=== PATIENT | male | born 1940 | race Caucasian/White ===

== ENCOUNTER 2019-10-29 10:33 | Outpatient (CLI) | payer MEDICARE, SELFPAY ==
[2019-10-29 11:33] LABS: Alanine Aminotransferase 22 U/L (16-63); Albumin Level 3.5 g/dL (3.4-5.0); Alkaline Phosphatase 72 U/L (46-116); Anion Gap 10.4 mmol/L (7-16); Aspartate Amino Transferase 18 U/L (15-37); Bilirubin,Total 0.9 mg/dL (0.00-1.00); Blood Urea Nitrogen 19 mg/dL (7-18); Calcium 8.8 mg/dL (8.5-10.1); Carbon Dioxide 31 mmol/L (21-32); Chloride 104 mmol/L (98-108); Estimated Glomerular Filt Rate 53; Glucose 93 mg/dL (70-99); Osmolality Calculated 294 mOsm/kg (285-295); Potassium 4.4 mmol/L (3.5-5.1); Prostate Specific Antigen 1.1 ng/mL (< OR = 4.0); Sodium 141 mmol/L (136-145); Total Protein 6.9 g/dL (6.4-8.2)
== END 2019-10-29 10:34 | disposition home or self-care (01) ==
LOC: CHSLAB 10:36
PROVIDERS: PCP Internal Medicine; Visit Provider Urology
DX: R97.20 Elevated prostate specific antigen [PSA] (principal)
CPT/HCPCS: 36415; 80053; 84153

== ENCOUNTER 2020-09-28 11:18 | Outpatient (CLI) | payer MEDICARE, SELFPAY ==
--- NOTE | ~2020-09-28 | US_ITS ---
EXAMINATION: US carotid duplex BI DATE: 09/28/2020 16:09 INDICATION: Syncope. TECHNIQUE: Grayscale, color Doppler, and pulsed Doppler images of the cervical carotid arteries were obtained. The degree of vessel stenosis is placed in one of the following categories: normal, <50%, 5 0-69%, >=70% but less than near-occlusion, near-occlusion, or total occlusion. Note that percent sten osis relative to normal distal artery lumen diameter is indirectly measured from velocity measurement s as described by Donny, et al. Radiology 2003; 229:340-346. COMPARISON: None. FINDINGS: RIGHT: The right common carotid artery (CCA) peak systolic velocity (PSV) is 94 cm/s. The right internal car otid artery (ICA) PSV is 102 cm/s. The right ICA end-diastolic velocity (EDV) is 31 cm/s. The right I CA/CCA PSV ratio is 1.1. Grayscale and color Doppler images yield an estimate of <50% diameter reduct ion from plaque in the ICA. There is antegrade flow in the right vertebral artery. LEFT: The left CCA PSV is 66 cm/s. The left ICA PSV is 88 cm/s. The left ICA EDV is 27 cm/s. The left ICA/C CA PSV ratio is 1.3. Grayscale and color Doppler images yield an estimate of <50% diameter reduction from plaque in the ICA. There is antegrade flow in the left vertebral artery. IMPRESSION: 1. <50% stenosis in the right internal carotid artery. 2. <50% stenosis in the left internal carotid artery. Reviewed, dictated and finalized at location A.
--- NOTE | ~2020-09-28 | XR_ITS ---
EXAMINATION: XR chest 2V 09/28/2020 12:06 INDICATION: Syncope and dizziness PROCEDURE: 2 view chest COMPARISON: Comparison to multiple prior studies sequentially, with oldest reviewed study dated 01/03. FINDINGS: The lungs are clear. The cardiomediastinal silhouette is within normal limits. There are no pleural effusions. There is no pneumothorax suspected. Prominent bilateral nipple shadows. IMPRESSION: 1: NO ACUTE CARDIOPULMONARY DISEASE. Reviewed, dictated and finalized at location B.
[2020-09-28 11:33] LABS: Basophils Absolute Auto 0.03 K/mm3 (0.00-0.10); Basophils Percent Auto 0.3 % (0.0-1.0); Eosinophils Absolute Auto 0.04 K/mm3 (0.02-0.50); Eosinophils Percent Auto 0.4 % (1.0-6.0); Hematocrit 44.1 % (37.0-46.0); Hemoglobin 15.6 g/dL (12.4-15.3); Immature Granulocyte Absolute 0.07 K/mm3 (0.00-0.00); Immature Granulocyte Percent A 0.7 % (0.0-0.0); Lymphocytes Absolute Auto 1.48 K/mm3 (1.10-4.50); Lymphocytes Percent Auto 15.5 % (18.0-42.0); Mean Corpuscular HGB Conc 35.4 g/dL (32.0-36.0); Mean Corpuscular Hemoglobin 31.5 pg (27.0-31.0); Mean Corpuscular Volume 88.9 fL (78.0-102.0); Mean Platelet Volume 8.7 fl (8.7-11.0); Monocytes Absolute Auto 0.76 K/mm3 (0.10-0.90); Neutrophils Absolute Auto 7.2 K/mm3 (1.7-7.2); Neutrophils Percent Auto 75.1 % (50.0-70.0); Platelet Count Result 251 K/mm3 (150-420); Red Blood Count 4.96 M/mm3 (4.70-6.10); Red Cell Distribution Width 12.6 % (11.6-14.4); White Blood Count 9.6 K/mm3 (4.8-10.8)
[2020-09-28 11:36] LABS: Add Urine Microscopic? YES; Appearance Urine Clear (Clear); Bilirubin Urine Negative (Negative); Blood Urine 2+ (Negative); Color Urine Yellow (Yellow); Glucose Urine UA Negative (Negative); Ketones Urine Negative (Negative); Leukocyte Esterase Ur Negative LEU/UL (Negative); Nitrate Urine Negative (Negative); Protein Urine Negative (Negative); Urobilinogen Urine 0.2 mg/dL (0.2-1.0)
[2020-09-28 11:38] LABS: RBC Urine 0-2 /hpf (0-2); Squamous Epithelial Cell Urine Rare /hpf (Few); WBC Urine None seen /hpf (0-3)
[2020-09-28 11:39] LABS: Bacteria Urine Trace /hpf
--- NOTE | 2020-09-28 11:45 | ECG_ITS ---
Measurements Intervals Imperial Rate: 61 P: 66 KS: 149 QRS: 39 QRSD: 89 T: 12 QT: 366 QTc: 370 Interpretive Statements SINUS RHYTHM NORMAL ECG Electronically Signed On 09-28-2020 13:07:19 CDT by Bert Varela D.O.
[2020-09-28 12:25] LABS: Alanine Aminotransferase 27 U/L (16-63); Albumin Level 3.8 g/dL (3.4-5.0); Alkaline Phosphatase 78 U/L (46-116); Anion Gap 12 mmol/L (8-16); Aspartate Amino Transferase 19 U/L (15-37); Bilirubin,Total 0.8 mg/dL (0.00-1.00); Blood Urea Nitrogen 18 mg/dL (7-18); Calcium 9.3 mg/dL (8.5-10.1); Carbon Dioxide 28 mmol/L (21-32); Chloride 103 mmol/L (98-108); Cholesterol 197 mg/dL (0-200); Estimated Glomerular Filt Rate 60; Glucose 96 mg/dL (70-99); HDL Direct 64 mg/dL (40-60); LDL Cholesterol Calculated 110 mg/dL (<130); Osmolality Calculated 297 mOsm/kg (285-295); Potassium 4.4 mmol/L (3.5-5.1); Sodium 143 mmol/L (136-145); Thyroid Stimulating Hormone 0.33 uIU/mL (0.36-3.74); Total Protein 7.1 g/dL (6.4-8.2); Triglycerides 113 mg/dL (0-150)
[2020-09-28 13:07] LABS: CRP < 0.2 mg/dL (0.0-0.9)
--- NOTE | 2020-09-28 14:40 | ECHO_ITS ---
Patient Info Name: Jesús Cruz Age: 80 years : 1940 Gender: Male Ht: 68 in Wt: 155 lbs BSA: 1.84 m2 HR: 72 bpm BP: 154 / 77 mmHg Heart Rhythm: Sinus Rhythm Technical Quality: Fair Exam Date: 09/28/2020 2:32 PM Exam Location: [facility] Patient Status: Outpatient Admit Date: 09/28/2020 Staff Ordering Physician: Jorge A Carlton MD Methods Examiner: Josie Garrison RDCS Attending Provider: Jorge A Carlton MD Exam Type: CA echo doppler color flow Study Info Indications R55 - Syncope and collapse Strain analysis performed. Complete two-dimensional, color flow and Doppler transthoracic echocardiogram is performed. History/Risk Factors Tobacco Use: Never Summary 1. Complete two-dimensional, color flow and Doppler transthoracic echocardiogram is performed. 2. Left ventricular chamber dimension is normal. 3. Left ventricular systolic function is normal, estimated at 60-65%. 4. The left ventricular diastolic function is grade I diastolic dysfunction. 5. E/e' 8 is minimally elevated. 6. Global longitudinal strain is normal at -20.7%. 7. Interatrial septal aneurysm with no evidence of shunting by color doppler. 8. There is mild aortic valve sclerosis. 9. There is mild aortic valve regurgitation. 10. There is mild mitral valve regurgitation. 11. There is mild tricuspid valve regurgitation. 12. No pulmonary hypertension, estimated pulmonary arterial systolic pressure is 35 mmHg. 13. There is trace pulmonic regurgitation. Left Ventricle E/e' 8 is minimally elevated. Global longitudinal strain is normal at -20.7%. Left ventricular chamber dimension is normal. Left ventricular systolic function is normal, estimated at 60-65%. The left ventricular diastolic function is grade I diastolic dysfunction. Right Ventricle Right ventricular systolic function is normal and with normal TAPSE 1.8 cm.. Right ventricular chamber dimension is normal. Left Atria Left atrial chamber dimension is normal. Right Atria Right atrial chamber dimension is normal. 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 Aortic Valve The aortic valve is trileaflet. There is mild aortic valve sclerosis. There is no aortic valve stenosis. There is mild aortic valve regurgitation. Pulmonic Valve There is trace pulmonic regurgitation. Mitral Valve There is no mitral valve stenosis. There is mild mitral valve regurgitation. Tricuspid Valve There is mild tricuspid valve regurgitation. No pulmonary hypertension, estimated pulmonary arterial systolic pressure is 35 mmHg. Pericardium/Pleural There is no pericardial effusion. Inferior Vena Cava Inferior vena cava is not well visualized. Aorta The aortic root size at the sinus of Valsalva is normal. Left Ventricular Outflow Tract Name Value Normal LVOT 2D LVOT Diameter 1.9 cm LVOT Doppler LVOT Peak Velocity 130 cm/s LVOT Peak Gradient 7 mmHg LVOT Mean Gradient 3 mmHg LVOT VTI 23 cm
== END 2020-09-28 11:19 | disposition home or self-care (01) ==
PROVIDERS: PCP Internal Medicine; Visit Provider Internal Medicine
DX: R55 Syncope and collapse (principal); E03.9 Hypothyroidism, unspecified; E78.5 Hyperlipidemia, unspecified
CPT/HCPCS: 36415; 71046; 80053; 80061; 81001; 84443; 85025; 86140; 93005; 93306; 93880

== ENCOUNTER 2020-09-30 12:45 | Outpatient (CLI) | payer MEDICARE, SELFPAY | END 2020-09-30 12:46 | disposition home or self-care (01) | LOC: CHSLAB 12:49 | PROVIDERS: PCP Internal Medicine; Visit Provider Urology | DX: N42.9 Disorder of prostate, unspecified (principal); N40.1 Benign prostatic hyperplasia with lower urinary tract symptoms | CPT/HCPCS: 36415; 84153 ==

== ENCOUNTER 2020-10-05 06:55 | Outpatient (CLI) | payer MEDICARE, SELFPAY ==
--- NOTE | ~2020-10-05 | MR_ITS ---
EXAMINATION: MR brain/brain stem wo con DATE: 10/05/2020 12:10 INDICATION: Syncope. TECHNIQUE: Magnetic resonance imaging (MRI) of the brain and brainstem was performed without intraven ous contrast. Sequences included sagittal and axial T1-weighted FSE, axial diffusion-weighted FS EPI, axial T2*-weighted GRE, axial T2-weighted FLAIR Propeller, and axial T2-weighted Propeller. Apparent diffusion coefficient (ADC) maps were created. COMPARISON: None. FINDINGS: There is diffuse brain volume loss. There are scattered areas of nonspecific increased T2-w eighted signal intensity in the cerebral white matter, which is within normal limits for the patient' s age. 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 There is no intracranial hemorrhage, acute infarct ion, or abnormal intracranial mass lesion. The ventricles are normal in size. There are likely change s of ocular lens replacement surgeries. There is mild mucosal thickening in the paranasal sinuses. Th e mastoid air cells are normal. IMPRESSION: 1. Old infarct in left cerebellum. Reviewed, dictated and finalized at location A.
--- NOTE | 2020-10-31 17:09 | WPDHOLTEREM ---
Holter/Event Monitor Holter/Event Monitor Date of procedure: 10/05/20 Holter/Event Procedure: Event Monitor Indications: Syncope Conclusion: 1. 24 days event monitor between 10/05/20-10/31/20. There are 33 available transmissions for analysis. 2. Predominant rhythm is sinus rhythm. HR range 37-143 bpm; average HR 61 bpm. HR at 37 bpm occurred at 02:01. 3. There are occasional premature supraventricular complexes with total burden of 1%. 1 episode of atrial tachycardia at 143 bpm lasting 14 beats on 10/15/20 at 22:20. 4. There are frequent premature ventricular complexes with total burden of 9%. No ventricular tachycardia. 5. No significant pauses greater than 2 seconds. 6. No symptoms available for correlation.
== END 2020-10-05 06:56 | disposition home or self-care (01) ==
LOC: CHSIMG 06:58
PROVIDERS: PCP Internal Medicine; Visit Provider Internal Medicine
DX: R55 Syncope and collapse (principal)
CPT/HCPCS: 70551

== ENCOUNTER 2020-12-09 11:11 | Outpatient (CLI) | payer MEDICARE, SELFPAY ==
[2020-12-09 11:32] LABS: Basophils Absolute Auto 0.02 K/mm3 (0.00-0.10); Basophils Percent Auto 0.2 % (0.0-1.0); Eosinophils Absolute Auto 0.03 K/mm3 (0.02-0.50); Eosinophils Percent Auto 0.3 % (1.0-6.0); Hemoglobin 15.3 g/dL (12.4-15.3); Immature Granulocyte Absolute 0.04 K/mm3 (0.00-0.00); Immature Granulocyte Percent A 0.5 % (0.0-0.0); Lymphocytes Absolute Auto 1.56 K/mm3 (1.10-4.50); Lymphocytes Percent Auto 17.7 % (18.0-42.0); Mean Corpuscular Hemoglobin 30.1 pg (27.0-31.0); Mean Corpuscular Volume 88.4 fL (78.0-102.0); Mean Platelet Volume 8.8 fl (8.7-11.0); Monocytes Absolute Auto 0.59 K/mm3 (0.10-0.90); Monocytes Percent Auto 6.7 % (2.0-11.0); Neutrophils Absolute Auto 6.6 K/mm3 (1.7-7.2); Neutrophils Percent Auto 74.6 % (50.0-70.0); Platelet Count Result 249 K/mm3 (150-420); Red Blood Count 5.09 M/mm3 (4.70-6.10); Red Cell Distribution Width 12.5 % (11.6-14.4); White Blood Count 8.8 K/mm3 (4.8-10.8)
[2020-12-09 11:45] LABS: Prothrombin Time 10.5 Seconds (9.50-12.10)
[2020-12-09 12:56] LABS: Alanine Aminotransferase 27 U/L (16-63); Alkaline Phosphatase 68 U/L (46-116); Anion Gap 8 mmol/L (8-16); Aspartate Amino Transferase 28 U/L (15-37); Bilirubin,Total 1.1 mg/dL (0.00-1.00); Blood Urea Nitrogen 19 mg/dL (7-18); Calcium 9.2 mg/dL (8.5-10.1); Carbon Dioxide 29 mmol/L (21-32); Chloride 106 mmol/L (98-108); Cholesterol 173 mg/dL (0-200); Estimated Glomerular Filt Rate 56; Free T4 Free Thyroxine 1.29 ng/dL (0.76-1.46); Glucose 160 mg/dL (70-99); HDL Direct 56 mg/dL (40-60); LDL Cholesterol Calculated 96 mg/dL (<130); Osmolality Calculated 301 mOsm/kg (285-295); Potassium 3.9 mmol/L (3.5-5.1); Sodium 143 mmol/L (136-145); Thyroid Stimulating Hormone 0.23 uIU/mL (0.36-3.74); Total Protein 7.1 g/dL (6.4-8.2); Triglycerides 107 mg/dL (0-150)
[2020-12-12 12:38] LABS: Total Triiodothyronine (T3) 87 ng/dL (76-181)
== END 2020-12-09 11:12 | disposition home or self-care (01) ==
LOC: CHSLAB 11:15
PROVIDERS: PCP Internal Medicine
DX: I63.50 Cerebral infarction due to unspecified occlusion or stenosis of unspecified cerebral artery (principal); R00.1 Bradycardia, unspecified; E78.5 Hyperlipidemia, unspecified; E03.9 Hypothyroidism, unspecified; R42 Dizziness and giddiness; Z13.6 Encounter for screening for cardiovascular disorders
CPT/HCPCS: 36415; 80053; 80061; 84439; 84443; 84480; 85025; 85610

== ENCOUNTER 2021-01-20 10:22 | Outpatient (CLI) | payer MEDICARE, SELFPAY ==
[2021-01-20 10:35] LABS: Basophils Absolute Auto 0.04 K/mm3 (0.00-0.10); Basophils Percent Auto 0.5 % (0.0-1.0); Eosinophils Absolute Auto 0.05 K/mm3 (0.02-0.50); Eosinophils Percent Auto 0.6 % (1.0-6.0); Hematocrit 43.1 % (37.0-46.0); Hemoglobin 15.3 g/dL (12.4-15.3); Immature Granulocyte Absolute 0.04 K/mm3 (0.00-0.00); Immature Granulocyte Percent A 0.5 % (0.0-0.0); Lymphocytes Absolute Auto 1.48 K/mm3 (1.10-4.50); Lymphocytes Percent Auto 16.9 % (18.0-42.0); Mean Corpuscular HGB Conc 35.5 g/dL (32.0-36.0); Mean Corpuscular Hemoglobin 31.6 pg (27.0-31.0); Mean Platelet Volume 8.8 fl (8.7-11.0); Monocytes Absolute Auto 0.71 K/mm3 (0.10-0.90); Monocytes Percent Auto 8.1 % (2.0-11.0); Neutrophils Absolute Auto 6.5 K/mm3 (1.7-7.2); Neutrophils Percent Auto 73.4 % (50.0-70.0); Platelet Count Result 244 K/mm3 (150-420); Red Blood Count 4.84 M/mm3 (4.70-6.10); Red Cell Distribution Width 12.5 % (11.6-14.4); White Blood Count 8.8 K/mm3 (4.8-10.8)
[2021-01-20 10:48] LABS: Anion Gap 10 mmol/L (8-16); Blood Urea Nitrogen 18 mg/dL (7-18); Calcium 8.9 mg/dL (8.5-10.1); Carbon Dioxide 27 mmol/L (21-32); Chloride 104 mmol/L (98-108); Estimated Glomerular Filt Rate 54; Glucose 123 mg/dL (70-99); Osmolality Calculated 294 mOsm/kg (285-295); Potassium 3.8 mmol/L (3.5-5.1); Sodium 141 mmol/L (136-145)
[2021-01-20 10:56] LABS: Prothrombin Time 10.5 Seconds (9.50-12.10)
== END 2021-01-20 10:23 | disposition home or self-care (01) ==
LOC: CHSLAB 10:26
PROVIDERS: PCP Internal Medicine
DX: R94.39 Abnormal result of other cardiovascular function study (principal); R42 Dizziness and giddiness; I63.50 Cerebral infarction due to unspecified occlusion or stenosis of unspecified cerebral artery; R00.1 Bradycardia, unspecified; E03.9 Hypothyroidism, unspecified
CPT/HCPCS: 36415; 80048; 85025; 85610

== ENCOUNTER 2021-12-29 11:44 | Outpatient (CLI) | payer MEDICARE, SELFPAY ==
[2021-12-29 12:35] LABS: Alanine Aminotransferase 28 U/L (16-63); Albumin Level 3.6 g/dL (3.4-5.0); Alkaline Phosphatase 69 U/L (46-116); Anion Gap 6 mmol/L (8-16); Aspartate Amino Transferase 21 U/L (15-37); Bilirubin,Total 0.8 mg/dL (0.00-1.00); Blood Urea Nitrogen 17 mg/dL (7-18); Calcium 8.7 mg/dL (8.5-10.1); Carbon Dioxide 30 mmol/L (21-32); Chloride 102 mmol/L (98-108); Estimated Glomerular Filt Rate > 60; Glucose 117 mg/dL (70-99); Osmolality Calculated 288 mOsm/kg (285-295); Potassium 3.9 mmol/L (3.5-5.1); Prostate Specific Antigen 0.9 ng/mL (< OR = 4.0); Sodium 138 mmol/L (136-145); Total Protein 7.1 g/dL (6.4-8.2)
== END 2021-12-29 11:45 | disposition home or self-care (01) ==
LOC: CHSLAB 11:49
PROVIDERS: PCP Internal Medicine; Visit Provider Urology
DX: N42.9 Disorder of prostate, unspecified (principal); N40.1 Benign prostatic hyperplasia with lower urinary tract symptoms
CPT/HCPCS: 36415; 80053; 84153

== ENCOUNTER 2022-01-03 13:53 | Outpatient (CLI) | payer MEDICARE, SELFPAY ==
[2022-01-03 14:06] LABS: Basophils Absolute Auto 0.03 K/mm3 (0.00-0.10); Basophils Percent Auto 0.3 % (0.0-1.0); Eosinophils Absolute Auto 0.08 K/mm3 (0.02-0.50); Eosinophils Percent Auto 0.9 % (1.0-6.0); Hematocrit 43.8 % (37.0-46.0); Hemoglobin 15.5 g/dL (12.4-15.3); Immature Granulocyte Absolute 0.04 K/mm3 (0.00-0.00); Immature Granulocyte Percent A 0.4 % (0.0-0.0); Lymphocytes Absolute Auto 1.91 K/mm3 (1.10-4.50); Lymphocytes Percent Auto 20.6 % (18.0-42.0); Mean Corpuscular HGB Conc 35.4 g/dL (32.0-36.0); Mean Corpuscular Hemoglobin 31.4 pg (27.0-31.0); Mean Corpuscular Volume 88.7 fL (78.0-102.0); Mean Platelet Volume 8.4 fl (8.7-11.0); Monocytes Absolute Auto 0.96 K/mm3 (0.10-0.90); Monocytes Percent Auto 10.4 % (2.0-11.0); Neutrophils Absolute Auto 6.3 K/mm3 (1.7-7.2); Neutrophils Percent Auto 67.4 % (50.0-70.0); Platelet Count Result 263 K/mm3 (150-420); Red Blood Count 4.94 M/mm3 (4.70-6.10); Red Cell Distribution Width 12.8 % (11.6-14.4); White Blood Count 9.3 K/mm3 (4.8-10.8)
[2022-01-03 14:15] LABS: Hemoglobin A1C 5.2 % (<5.7)
[2022-01-03 14:31] LABS: Alanine Aminotransferase 28 U/L (16-63); Albumin Level 3.7 g/dL (3.4-5.0); Alkaline Phosphatase 70 U/L (46-116); Anion Gap 6 mmol/L (8-16); Aspartate Amino Transferase 21 U/L (15-37); Bilirubin,Total 0.9 mg/dL (0.00-1.00); Blood Urea Nitrogen 15 mg/dL (7-18); Calcium 8.7 mg/dL (8.5-10.1); Carbon Dioxide 31 mmol/L (21-32); Chloride 105 mmol/L (98-108); Estimated Glomerular Filt Rate > 60; Glucose 93 mg/dL (70-99); Magnesium 2.2 mg/dL (1.8-2.4); Osmolality Calculated 294 mOsm/kg (285-295); Phosphorus 3.2 mg/dL (2.6-4.7); Potassium 3.7 mmol/L (3.5-5.1); Sodium 142 mmol/L (136-145); Thyroid Stimulating Hormone 0.21 uIU/mL (0.36-3.74); Total Protein 7.1 g/dL (6.4-8.2)
[2022-01-03 14:37] LABS: CRP < 0.2 mg/dL (0.0-0.9)
[2022-01-06 11:42] LABS: Methylmalonic Acid 304 nmol/L (87-318)
== END 2022-01-03 13:54 | disposition home or self-care (01) ==
LOC: CHSLAB 13:55
PROVIDERS: PCP Internal Medicine; Visit Provider Internal Medicine
DX: G62.9 Polyneuropathy, unspecified (principal); E53.8 Deficiency of other specified B group vitamins; R73.01 Impaired fasting glucose; E03.9 Hypothyroidism, unspecified
CPT/HCPCS: 36415; 80053; 83036; 83735; 83921; 84100; 84443; 85025; 86140

== ENCOUNTER 2022-07-25 11:15 | Outpatient (CLI) | payer MEDICARE, SELFPAY ==
[2022-07-25 12:02] LABS: Thyroid Stimulating Hormone 19.91 uIU/mL (0.36-3.74)
== END 2022-07-25 11:16 | disposition home or self-care (01) ==
LOC: CHSLAB 11:16
PROVIDERS: PCP Internal Medicine; Visit Provider Internal Medicine
DX: E03.9 Hypothyroidism, unspecified (principal)
CPT/HCPCS: 36415; 84443

== ENCOUNTER 2022-10-23 15:03 | Outpatient (CLI) | payer MEDICARE, SELFPAY ==
--- NOTE | ~2022-10-23 | CT_ITS ---
EXAMINATION: CT abdomen pelvis wo con DATE: 10/23/2022 15:31 INDICATION: Abdominal pain and hematuria for 2 weeks. No history of kidney stones. TECHNIQUE: Computed tomography (CT) of the abdomen and pelvis was performed without intravenous contr ast. Automated exposure control and iterative reconstruction technique were employed. Exam dose: 183 .41 mGy-cm total exam DLP. COMPARISON: None. FINDINGS: There is focal infiltrate, atelectasis and/or scar in the posterior middle lobe. The lung b ases otherwise appear clear. Heart size is normal Coronary artery calcifications. Pacemaker leads. No pericardial or pleural effusion. Moderately large sliding hiatal hernia. Multiple stones are noted layering in the dependent aspect of the gallbladder. No gallbladder wall th ickening or pericholecystic fluid or fat stranding is noted. No bile duct or pancreatic duct dilatati on is evident. No hepatic, splenic, pancreatic, and adrenal or renal space-occupying mass lesion is detected on this limited noncontrast examination. This limited noncontrast examination is not sensitive for detection of some causes of hematuria including transitional cell neoplasm/urothelial malignancy No urinary tract calculi or hydroureteronephrosis. There is prostate enlargement and calcifications. There is moderate diffuse thickening of the urinary bladder wall, likely due to prostatomegaly. There is atherosclerotic calcification but normal caliber of the abdominal aorta. Calcified location at the origins of the renal arteries and celiac and mesenteric arteries. Normal appendix. There are numerous diverticula of the left colon; no CT evidence of diverticulitis. No bowel obstruction, bowel wall thickening, pneumatosis or intraperitoneal free air is detected. Very small fat-containing umbilical hernia. Degenerative changes of the thoracic and particularly lumbar spine including severe degenerative disc disease at L4-5 and L5-S1, posterior disc bulging L4-5. IMPRESSION: Moderately large sliding hiatal hernia Cholelithiasis Diverticulosis of the colon Normal appendix Reviewed, dictated and finalized at Location A. Reviewed, dictated and finalized at location L.
[2022-10-23 15:19] LABS: Basophils Absolute Auto 0.01 K/mm3 (0.00-0.10); Basophils Percent Auto 0.1 % (0.0-1.0); Eosinophils Absolute Auto 0.03 K/mm3 (0.02-0.50); Eosinophils Percent Auto 0.3 % (1.0-6.0); Hemoglobin 14.5 g/dL (12.4-15.3); Immature Granulocyte Absolute 0.05 K/mm3 (0.00-0.00); Immature Granulocyte Percent A 0.5 % (0.0-0.0); Mean Corpuscular HGB Conc 34.5 g/dL (32.0-36.0); Mean Corpuscular Hemoglobin 31.3 pg (27.0-31.0); Mean Corpuscular Volume 90.7 fL (78.0-102.0); Mean Platelet Volume 8.9 fl (8.7-11.0); Monocytes Absolute Auto 0.86 K/mm3 (0.10-0.90); Monocytes Percent Auto 8.6 % (2.0-11.0); Neutrophils Absolute Auto 8.1 K/mm3 (1.7-7.2); Neutrophils Percent Auto 81.5 % (50.0-70.0); Platelet Count Result 223 K/mm3 (150-420); Red Blood Count 4.63 M/mm3 (4.70-6.10); Red Cell Distribution Width 13.2 % (11.6-14.4)
[2022-10-23 15:56] LABS: Alanine Aminotransferase 367 U/L (16-63); Albumin Level 3.3 g/dL (3.4-5.0); Alkaline Phosphatase 188 U/L (46-116); Amylase 35 U/L (25-115); Anion Gap 8 mmol/L (8-16); Aspartate Amino Transferase 116 U/L (15-37); Bilirubin,Total 2.3 mg/dL (0.00-1.00); Blood Urea Nitrogen 17 mg/dL (7-18); CRP 6.8 mg/dL (0.0-0.9); Calcium 9.2 mg/dL (8.5-10.1); Carbon Dioxide 28 mmol/L (21-32); Chloride 105 mmol/L (98-108); Estimated Glomerular Filt Rate 53; Glucose 107 mg/dL (70-99); Lipase 56 U/L (16-77); Osmolality Calculated 293 mOsm/kg (285-295); Potassium 3.9 mmol/L (3.5-5.1); Prostate Specific Antigen 0.7 ng/mL (< OR = 4.0); Sodium 141 mmol/L (136-145); Total Protein 7.9 g/dL (6.4-8.2)
== END 2022-10-23 15:04 | disposition home or self-care (01) ==
LOC: CHSLAB 15:05
PROVIDERS: PCP Internal Medicine; Visit Provider Internal Medicine
DX: R10.9 Unspecified abdominal pain (principal); N41.9 Inflammatory disease of prostate, unspecified; M35.3 Polymyalgia rheumatica; R31.9 Hematuria, unspecified; K44.9 Diaphragmatic hernia without obstruction or gangrene; K80.20 Calculus of gallbladder without cholecystitis without obstruction; K57.90 Diverticulosis of intestine, part unspecified, without perforation or abscess without bleeding
CPT/HCPCS: 36415; 74176; 80053; 82150; 83690; 84153; 85025; 86140

== ENCOUNTER 2022-10-25 09:05 | Outpatient (CLI) | payer MEDICARE, SELFPAY ==
[2022-10-25 09:18] LABS: Basophils Absolute Auto 0.03 K/mm3 (0.00-0.10); Basophils Percent Auto 0.4 % (0.0-1.0); Eosinophils Absolute Auto 0.05 K/mm3 (0.02-0.50); Eosinophils Percent Auto 0.6 % (1.0-6.0); Hematocrit 41.5 % (37.0-46.0); Hemoglobin 14.5 g/dL (12.4-15.3); Immature Granulocyte Absolute 0.06 K/mm3 (0.00-0.00); Immature Granulocyte Percent A 0.7 % (0.0-0.0); Lymphocytes Absolute Auto 1.47 K/mm3 (1.10-4.50); Lymphocytes Percent Auto 18.2 % (18.0-42.0); Mean Corpuscular HGB Conc 34.9 g/dL (32.0-36.0); Mean Corpuscular Hemoglobin 31.7 pg (27.0-31.0); Mean Corpuscular Volume 90.6 fL (78.0-102.0); Mean Platelet Volume 9.2 fl (8.7-11.0); Monocytes Absolute Auto 0.58 K/mm3 (0.10-0.90); Monocytes Percent Auto 7.2 % (2.0-11.0); Neutrophils Absolute Auto 5.9 K/mm3 (1.7-7.2); Neutrophils Percent Auto 72.9 % (50.0-70.0); Platelet Count Result 242 K/mm3 (150-420); Red Blood Count 4.58 M/mm3 (4.70-6.10); Red Cell Distribution Width 12.8 % (11.6-14.4); White Blood Count 8.1 K/mm3 (4.8-10.8)
[2022-10-25 09:58] LABS: Alanine Aminotransferase 198 U/L (16-63); Albumin Level 3.3 g/dL (3.4-5.0); Alkaline Phosphatase 165 U/L (46-116); Amylase 30 U/L (25-115); Anion Gap 12 mmol/L (8-16); Aspartate Amino Transferase 31 U/L (15-37); Bilirubin,Total 1.4 mg/dL (0.00-1.00); Blood Urea Nitrogen 18 mg/dL (7-18); Calcium 9.1 mg/dL (8.5-10.1); Carbon Dioxide 27 mmol/L (21-32); Chloride 103 mmol/L (98-108); Estimated Glomerular Filt Rate 52; Glucose 142 mg/dL (70-99); Lipase 40 U/L (16-77); Osmolality Calculated 297 mOsm/kg (285-295); Potassium 3.5 mmol/L (3.5-5.1); Sodium 142 mmol/L (136-145); Total Protein 6.7 g/dL (6.4-8.2)
== END 2022-10-25 09:06 | disposition home or self-care (01) ==
LOC: CHSLAB 09:08
PROVIDERS: PCP Internal Medicine; Visit Provider Internal Medicine
DX: R10.9 Unspecified abdominal pain (principal)
CPT/HCPCS: 36415; 80053; 82150; 83690; 85025

== ENCOUNTER 2022-10-29 09:00 | Outpatient (CLI) | payer MEDICARE, SELFPAY ==
[2022-10-29 09:11] LABS: Basophils Absolute Auto 0.04 K/mm3 (0.00-0.10); Basophils Percent Auto 0.4 % (0.0-1.0); Eosinophils Absolute Auto 0.08 K/mm3 (0.02-0.50); Eosinophils Percent Auto 0.7 % (1.0-6.0); Hematocrit 42.3 % (37.0-46.0); Hemoglobin 14.6 g/dL (12.4-15.3); Immature Granulocyte Absolute 0.14 K/mm3 (0.00-0.00); Immature Granulocyte Percent A 1.3 % (0.0-0.0); Lymphocytes Absolute Auto 2.37 K/mm3 (1.10-4.50); Lymphocytes Percent Auto 21.4 % (18.0-42.0); Mean Corpuscular HGB Conc 34.5 g/dL (32.0-36.0); Mean Corpuscular Hemoglobin 31.3 pg (27.0-31.0); Mean Corpuscular Volume 90.6 fL (78.0-102.0); Mean Platelet Volume 8.8 fl (8.7-11.0); Monocytes Absolute Auto 0.89 K/mm3 (0.10-0.90); Neutrophils Absolute Auto 7.6 K/mm3 (1.7-7.2); Neutrophils Percent Auto 68.2 % (50.0-70.0); Platelet Count Result 301 K/mm3 (150-420); Red Blood Count 4.67 M/mm3 (4.70-6.10); Red Cell Distribution Width 12.8 % (11.6-14.4); White Blood Count 11.1 K/mm3 (4.8-10.8)
[2022-10-29 09:39] LABS: Alanine Aminotransferase 106 U/L (16-63); Albumin Level 3.3 g/dL (3.4-5.0); Alkaline Phosphatase 165 U/L (46-116); Amylase 43 U/L (25-115); Anion Gap 10 mmol/L (8-16); Aspartate Amino Transferase 46 U/L (15-37); Bilirubin,Total 0.9 mg/dL (0.00-1.00); Blood Urea Nitrogen 16 mg/dL (7-18); Calcium 8.6 mg/dL (8.5-10.1); Carbon Dioxide 27 mmol/L (21-32); Chloride 107 mmol/L (98-108); Estimated Glomerular Filt Rate 51; Glucose 104 mg/dL (70-99); Lipase 54 U/L (16-77); Osmolality Calculated 299 mOsm/kg (285-295); Potassium 3.9 mmol/L (3.5-5.1); Sodium 144 mmol/L (136-145); Total Protein 6.6 g/dL (6.4-8.2)
== END 2022-10-29 09:01 | disposition home or self-care (01) ==
LOC: CHSLAB 09:01
PROVIDERS: PCP Internal Medicine; Visit Provider Internal Medicine
DX: R10.13 Epigastric pain (principal); R31.0 Gross hematuria
CPT/HCPCS: 36415; 80053; 82150; 83690; 85025

== ENCOUNTER 2022-11-23 11:28 | Outpatient (CLI) | payer MEDICARE, SELFPAY | END 2022-11-23 11:29 | disposition home or self-care (01) | PROVIDERS: PCP Internal Medicine; Visit Provider Surgery | DX: K80.20 Calculus of gallbladder without cholecystitis without obstruction (principal); Z01.818 Encounter for other preprocedural examination | CPT/HCPCS: 36415; 86850; 86900; 86901 ==

== ENCOUNTER 2022-11-30 01:23 | Day surgery (SDC) | payer MEDICARE, SELFPAY ==
[2022-11-21 09:33] VITALS: BMI 23.7
--- NOTE | 2022-11-21 09:57 | PC.NURSE ---
PRE-OP INSTRUCTIONS, PLEASE READ CAREFULLY Report to the Outpatient Waiting Room, entrance under the green pavilion located off [facility], at time _1100_ on date _11/30/22_. Planned Procedure Time: _1 PM_. Time changes happen often and if your time is changed the preop area will call you the afternoon before. - You and your visitor will be asked to self-screen and do not enter if you have any COVID symptoms. - A mask is optional within the hospital at this time. Patients may have clear liquids (water, carbonated beverages, clear teas, apple juice) until 3 hours prior to surgery (1000 AM) with a maximum of 20 ounces. - No food from midnight until time of surgery Take the following medications with a SIP of water the morning of surgery: _AMLODIPINE, LEVOTHYROXINE, PREDNISONE__ DO NOT STOP ANY OF YOUR OTHER PRESCRIPTION MEDICATIONS PRIOR TO SURGERY ?EXCEPT THE FOLLOWING Medications to discontinue per physician _NONE__, Date to take last dose Please no make-up, nail estonian, hairspray, perfume, deodorant, or body powder the day of surgery. No jewelry (including any body piercings) or valuables the day of surgery, leave them at home. Please take a shower or bath the night before, or the morning of, surgery with an antibacterial soap. Wear comfortable, loose fitting clothing. - Jewelry must be removed prior to entering the operating room. Rings and piercings that are not removed may be cut off. - The hospital will not accept responsibility for valuables. - Please leave all valuables, including medications, at home the day of surgery. If you are going home after surgery, a licensed grain combine driver must drive you home. - NO public transportation without another adult if you receive anesthesia. - We recommend that an adult stay with you for 24 hours following discharge. - We also recommend that you do not drive, make important decision, drink alcoholic beverages, or take any drugs that were not prescribed by your health care provider for at least 24 hours after your discharge time. Follow any additional instructions given to you from your surgeon. HIBICLENS SHOWER AM OF SURGERY If you or anyone in your household have experienced Covid symptoms in the past week, please notify your surgeon or the nurse liaison at the phone number below for possible testing. Telephone instructions given to _PATIENT'S DAUGHTER (GEOVANNY)_and asked if any additional questions and then verbalized understanding. Patient advised to call surgeon office or pre surgery nurse liaison [phone] if any additional questions.
--- NOTE | 2022-11-29 13:13 | P.PNAN_ITS ---
Anes - Initial Pre Proc Eval Procedure: Operation Date: 11/30/22 12:00 Proposed Procedures p Laparoscopic Cholecystectomy Possible Open - Diomedes Quesada DO Date/Time: 11/29/22 13:13 Surgeon: Diomedes Quesada DO Pre Op Diagnosis: symptomatic cholelithiasis Patient Data Age: 82 Gender: M Height: 1.7 m Weight: 68.63 kg Allergies Allergy/AdvReac Type Severity Reaction Status Date / Time No Known Allergies Allergy Unverified 11/30/22 10:50 Home Medications Medication Instructions Recorded Confirmed Type amlodipine 5 mg tablet 5 mg PO DAILY 11/02/22 11/21/22 History aspirin 81 mg tablet,delayed 81 mg PO DAILY 11/02/22 11/21/22 History release (Adult Aspirin Regimen) finasteride 5 mg tablet 5 mg PO DAILY 11/02/22 11/21/22 History levothyroxine 88 mcg capsule 88 mcg PO DAILY 11/02/22 11/21/22 History pantoprazole 40 mg tablet,delayed 40 mg PO QAM 11/02/22 11/21/22 History release prednisone 2.5 mg tablet 2.5 mg PO DAILY 11/02/22 11/21/22 History simvastatin 20 mg tablet 20 mg PO DAILY 11/02/22 11/21/22 History Patient hx anesthesia problems: none Family hx anesthesia problems: none Results Review: All pre-operative results and documents have been reviewed as part of the pre- operative evaluation. [facility] Past Medical History Medical History (Updated 11/29/22 @ 13:14 by Tone Ayoub DO) CAD (coronary artery disease) Hyperlipidemia Hypertension Hypothyroidism ICD (implantable cardioverter-defibrillator) in place MARTA (obstructive sleep apnea) Pacemaker TIA (transient ischemic attack) Surgical History Surgical History (Updated 11/02/22 @ 11:15 by Ester Clayton) S/P hernia repair Family History Family History (Updated 11/02/22 @ 11:14 by Ester Clayton) Father Acute myocardial infarction Unknown Heart disease Social History Social History (Updated 11/02/22 @ 11:14 by Ester Clayton) Smoking status: Never smoker Second hand tobacco smoke exposure: No Alcohol intake: never Substance use: never Substance use type: does not use Living arrangements: alone Spiritual care concerns: No Anes - Eval Final PreProcedure Day of Procedure 11/29/22 13:13 Patient weight: normal Heart: regular rate and rhythm Lungs: clear to auscultation and normal air movement Airway: Mallampati scale class II Neurological: alert and oriented Last oral intake: >/= 8 hours ASA classification: IV Emergent: no Anesthetic plan: proceed Anesthesia type and monitoring: general ETT and standard monitoring Results Review: All pre-operative results and documents have been reviewed as part of the pre- operative evaluation. Informed Consent: The patient's anesthetic plan and its attendant risks and benefits were discussed with the patient/family/POA. Questions were solicited and answers provided to the satisfaction of the patient/family/POA.
[2022-11-30] VITALS (8 sets, daily range): BP systolic 126–149; BP diastolic 39–77; PULSE 69–83; RESP 14–20; TEMP 36.2–36.8; O2SAT 98–100
[2022-11-30] MEDS: LACTATED RINGERS 1,000 ML 30 ML IV CONT ×2 (10:30→12:46)
[2022-11-30] MEDS: ACETAMINOPHEN 500 MG TABLET 1000 MG PO (10:45)
[2022-11-30] MEDS: KETOROLAC 15 MG/ML VIAL (*BKC) IV PUSH (10:50)
--- NOTE | 2022-11-30 11:19 | WPDHPUPDATE1 ---
History and Physical Update Update Date/Time: 11/30/22 11:19 History and Physical has been reviewed, including an updated exam of the patient. There are NO changes in the patient's condition. Risks, benefits, and alternatives have been discussed and questions answered. Patient agrees to proceed with procedure.
[2022-11-30] MEDS: ceFAZolin 2 GM/D5W 50 ML 2 GM/50 ML BAG IVPB (11:52)
[2022-11-30] MEDS: BUPIVACAINE/EPINEPHRINE 0.5% 50 ML VIAL 30 ML INFILTRATE (12:26)
--- NOTE | 2022-11-30 12:43 | W.PM.PROC2 ---
Procedure Note - Detailed Date of Procedure 11/30/22 Pre-op Diagnosis symptomatic cholelithiasis Post-op Diagnosis Same Procedure Performed Laparoscopic cholecystectomy Surgeon Diomedes Quesada, DO Anesthesia General and Local (0.5% bupivacaine) Indications This is an 82-year-old man who presented with an episode of severe upper abdominal pain about 1 month ago. He had workup including a CT which showed evidence of cholelithiasis. He has been staying on a low-fat diet since this episode and has not had any recurrences. He was seen in the office in options were discussed with the patient. Decision was made to proceed with laparoscopic cholecystectomy, possible open. Findings Laparoscopic cholecystectomy was performed. The gallbladder appeared slightly dilated and elongated, but there were no significant pericholecystic adhesions. The cystic duct appeared normal in size. No other abnormalities were noted. The gallbladder was removed and sent to the lab for pathology. Description of Procedure Procedure as well as risks, benefits, and alternatives were discussed with patient. Written consent was obtained and placed in chart prior to procedure. The patient was brought back to surgical suite. Patient was placed in supine position on operating table. Time-out was done to confirm patient and procedure. Patient was then intubated by the anesthesia department. Abdomen was prepped and draped in sterile fashion using chlorhexidine prep. 0.5% bupivacaine with epinephrine was infiltrated at each site of incision. An 11 millimeter vertical incision was made at the inferior portion of the umbilicus using a 15 blade scalpel. Blunt dissection was carried down to the linea alba. The linea alba was then incised using a 15 blade scalpel. The peritoneum was then bluntly entered. An 11 millimeter trocar was inserted and carbon dioxide insufflation was used to create a pneumoperitoneum. The camera was inserted and the abdomen was inspected. The patient was placed in reverse Trendelenberg position and rotated slightly to the left. A 5 millimeter incision was made in the epigastric region, and a 5 millimeter trocar was inserted under direct visualization. Two 5 millimeter incisions were made in the right upper quadrant, and two 5 millimeter trocars were inserted under direct visualization. The gallbladder was identified and grasped at the fundus and retracted superiorly. It was then grasped at the infundibulum retracted laterally. Careful dissection around the neck of the gallbladder was performed using blunt dissection with a [place] grasper and hook electrocautery. The cystic duct was identified, and a window was created behind it. The cystic artery was also identified and a window was created behind it. The critical view of safety was identified, visualizing the cystic duct running directly into the neck of the gallbladder, and the cystic artery running directly into the wall of the gallbladder. A 5 millimeter clip plate stacker was then used to place 2 clips proximally and 1 clip distally on both the cystic duct and cystic artery. They were then both transected using endoscopic scissors. Once safely away from the hector hepatitis, the gallbladder was dissected free from the liver bed using hook electrocautery. Hemostasis was achieved along the way. The gallbladder was removed completely and then removed through the umbilical port. The liver bed was then inspected. Hemostasis appeared adequate, and our clips appeared secure. The area was gently irrigated with sterile saline. No other abnormalities were seen. The patient was flattened out in bed, and 1 final inspection was made around the abdominal cavity. The ports were then removed under direct visualization, the camera was removed, and the pneumoperitoneum was released. The fascia of the umbilical incision was approximated using an 0 Vicryl [id number] suture. The skin of the incisions was approximated us
--- NOTE | 2022-11-30 13:17 | SUR.PHASEI ---
1309- Call to [email or web address] rep for pacemaker to be interrogated. Per Hemant at [email or web address] he will page rep. 1315- Call from [email or web address] rep and notified pacemaker interrogated and WNL. 1317- Fax received with interrogation information for pacemaker and placed on hard chart.
== END 2022-11-30 14:25 | disposition home or self-care (01) ==
PROVIDERS: PCP Internal Medicine; Visit Provider Surgery
PROC: 0FT44ZZ Resection of Gallbladder, Percutaneous Endoscopic Approach (ICD-10-PCS; CPT 47562; principal; 2022-11-30 12:00)
DX: K80.10 Calculus of gallbladder with chronic cholecystitis without obstruction (principal); I25.10 Atherosclerotic heart disease of native coronary artery without angina pectoris; E78.5 Hyperlipidemia, unspecified; I10 Essential (primary) hypertension; E03.9 Hypothyroidism, unspecified; G47.33 Obstructive sleep apnea (adult) (pediatric); Z86.73 Personal history of transient ischemic attack (TIA), and cerebral infarction without residual deficits; Z95.810 Presence of automatic (implantable) cardiac defibrillator; Z79.82 Long term (current) use of aspirin
CPT/HCPCS: 47562; 88304; A9270; J0690; J1100; J1885; J2405; J2704; J3010; J7120

== ENCOUNTER 2023-02-01 14:56 | Outpatient (CLI) | payer MEDICARE, SELFPAY ==
[2023-02-01 16:53] LABS: HDL Direct 71 mg/dL (40-60); Thyroid Stimulating Hormone 21.21 uIU/mL (0.36-3.74); Triglycerides 74 mg/dL (0-150)
[2023-02-01 17:59] LABS: Cholesterol 215 mg/dL (0-200); LDL Cholesterol Calculated 129 mg/dL (<130)
== END 2023-02-01 14:57 | disposition home or self-care (01) ==
LOC: CHSLAB 14:59
PROVIDERS: PCP Internal Medicine; Visit Provider Internal Medicine
DX: E78.5 Hyperlipidemia, unspecified (principal); E03.9 Hypothyroidism, unspecified
CPT/HCPCS: 36415; 80061; 84443

== ENCOUNTER 2023-08-02 09:15 | Outpatient (CLI) | payer MEDICARE, SELFPAY ==
[2023-08-02 11:25] LABS: Alanine Aminotransferase 31 U/L (16-63); Albumin Level 3.6 g/dL (3.4-5.0); Alkaline Phosphatase 77 U/L (46-116); Anion Gap 8 mmol/L (4-12); Aspartate Amino Transferase 22 U/L (15-37); Bilirubin,Total 0.7 mg/dL (0.00-1.00); Blood Urea Nitrogen 17 mg/dL (7-18); Calcium 8.4 mg/dL (8.5-10.1); Carbon Dioxide 30 mmol/L (21-32); Chloride 106 mmol/L (98-108); Estimated Glomerular Filt Rate 56; Glucose 73 mg/dL (70-99); Osmolality Calculated 298 mOsm/kg (285-295); Potassium 4.3 mmol/L (3.5-5.1); Sodium 144 mmol/L (136-145); Thyroid Stimulating Hormone 0.71 uIU/mL (0.36-3.74); Total Protein 6.6 g/dL (6.4-8.2)
== END 2023-08-02 09:16 | disposition home or self-care (01) ==
LOC: CHSLAB 09:19
PROVIDERS: PCP Internal Medicine; Visit Provider Internal Medicine
DX: E03.9 Hypothyroidism, unspecified (principal)
CPT/HCPCS: 36415; 80053; 84443

== ENCOUNTER 2024-01-03 12:46 | Outpatient (CLI) | payer MEDICARE, SELFPAY ==
[2024-01-03 14:18] LABS: Alanine Aminotransferase 25 U/L (16-63); Albumin Level 3.8 g/dL (3.4-5.0); Alkaline Phosphatase 82 U/L (46-116); Anion Gap 11 mmol/L (4-12); Aspartate Amino Transferase 26 U/L (15-37); Bilirubin,Total 1.3 mg/dL (0.00-1.00); Blood Urea Nitrogen 17 mg/dL (7-18); Calcium 9.2 mg/dL (8.5-10.1); Carbon Dioxide 28 mmol/L (21-32); Chloride 102 mmol/L (98-108); Estimated Glomerular Filt Rate 52; Glucose 129 mg/dL (70-99); Osmolality Calculated 295 mOsm/kg (285-295); Potassium 4.2 mmol/L (3.5-5.1); Prostate Specific Antigen 1.1 ng/mL (< OR = 4.0); Sodium 141 mmol/L (136-145); Total Protein 7.1 g/dL (6.4-8.2)
== END 2024-01-03 12:47 | disposition home or self-care (01) ==
PROVIDERS: PCP Internal Medicine; Visit Provider Urology
DX: N40.1 Benign prostatic hyperplasia with lower urinary tract symptoms (principal); N42.9 Disorder of prostate, unspecified
CPT/HCPCS: 36415; 80053; 84153

== ENCOUNTER 2024-02-17 11:10 | Outpatient (CLI) | payer MEDICARE, SELFPAY ==
[2024-02-17 11:22] LABS: Basophils Absolute Auto 0.04 K/mm3 (0.00-0.10); Basophils Percent Auto 0.4 % (0.0-1.0); Eosinophils Absolute Auto 0.05 K/mm3 (0.02-0.50); Eosinophils Percent Auto 0.5 % (1.0-6.0); Hematocrit 43.6 % (37.0-46.0); Hemoglobin 15.4 g/dL (12.4-15.3); Immature Granulocyte Absolute 0.07 K/mm3 (0.00-0.00); Immature Granulocyte Percent A 0.8 % (0.0-0.0); Lymphocytes Absolute Auto 1.47 K/mm3 (1.10-4.50); Mean Corpuscular HGB Conc 35.3 g/dL (32-36); Mean Corpuscular Hemoglobin 31.2 pg (27.0-31.0); Mean Corpuscular Volume 88.4 fL (78.0-102.0); Mean Platelet Volume 8.7 fl (8.7-11.0); Monocytes Absolute Auto 0.95 K/mm3 (0.10-0.90); Monocytes Percent Auto 10.3 % (2.0-11.0); Neutrophils Absolute Auto 6.61 K/mm3 (1.70-7.20); Platelet Count Result 265 K/mm3 (150-420); Red Blood Count 4.93 M/mm3 (4.70-6.10); Red Cell Distribution Width 12.8 % (11.6-14.4); White Blood Count 9.2 K/mm3 (4.8-10.8)
[2024-02-17 13:44] LABS: Alanine Aminotransferase 25 U/L (16-63); Albumin Level 3.7 g/dL (3.4-5.0); Alkaline Phosphatase 80 U/L (46-116); Anion Gap 11 mmol/L (4-12); Aspartate Amino Transferase 19 U/L (15-37); Bilirubin,Total 0.8 mg/dL (0.00-1.00); Blood Urea Nitrogen 18 mg/dL (7-18); Calcium 9.5 mg/dL (8.5-10.1); Carbon Dioxide 27 mmol/L (21-32); Chloride 105 mmol/L (98-108); Cholesterol 202 mg/dL (0-200); Estimated Glomerular Filt Rate 52; Glucose 79 mg/dL (70-99); HDL Direct 61 mg/dL (40-60); LDL Cholesterol Calculated 114 mg/dL (<130); Osmolality Calculated 296 mOsm/kg (285-295); Potassium 4.8 mmol/L (3.5-5.1); Sodium 143 mmol/L (136-145); Triglycerides 137 mg/dL (0-150)
[2024-02-17 13:46] LABS: CRP < 0.5 mg/dL (0.0-0.9)
== END 2024-02-17 11:11 | disposition home or self-care (01) ==
LOC: CHSLAB 11:11
PROVIDERS: PCP Internal Medicine; Visit Provider Internal Medicine
DX: E03.9 Hypothyroidism, unspecified (principal); I25.10 Atherosclerotic heart disease of native coronary artery without angina pectoris; M35.3 Polymyalgia rheumatica
CPT/HCPCS: 36415; 80053; 80061; 84443; 85025; 86140

== ENCOUNTER 2024-05-22 14:00 | Outpatient (CLI) | payer MEDICARE, SELFPAY ==
--- OUTSIDE RECORDS SUMMARY | 2024-05-22 14:07 | XMS_ITS | Referral Summary ---
Author Organization [facility] Virtual Care Address [address] [place] [address] Phone Care Team Providers Care Partition Assembler Name Role Phone Jorge A Carlton MD Primary Care Provider [phone] Kalin Sow MD Unavailable [phone] Fred Nichols MD Unavailable [phone] Audra Gilliam MD Unavailable [phone] Allergies No known active allergies Medications levothyroxine (SYNTHROID, LEVOTHROID) 100 mcg tablet take 1 tablet by oral route every day 0 0 6 Active finasteride (PROSCAR) 5 mg tablet Take 1 tablet (5 mg total) by mouth daily 4 9 Active aspirin 81 mg enteric coated tabletIndicatio ns:stop 5 days before surgery Take 1 tablet (81 mg total) by mouth daily Active predniSONE (DELTASONE) 2.5 mg tablet Take 1 tablet (2.5 mg) by mouth 2 (two) times a day Active amLODIPine (NORVASC) 5 mg tablet Take 1 tablet (5 mg total) by mouth daily Active pantoprazole DR (PROTONIX) 40 mg EC tablet Take 1 tablet (40 mg total) by mouth nightly Active simvastatin (ZOCOR) 20 mg tablet Take 1 tablet (20 mg total) by mouth nightly Active peg 400-hypromellos e-glycerin (ARTIFICAL TEARS) 1-0.2-0.2 % ophthalmic solution Administer into both eyes as needed for dry eyes Active Active Problems Problem Noted Date Diagnosed Date Encounter for removal of biliary stent 4 Abdominal pain 03/19/2023 Calculus of bile duct withou t cholecystitis with obstruction 03/19/2023 Primary hypertension 03/19/2023 Elevated liver function tests 03/19/[address] nodules on [address] 03/19/2023 Moderate pulmonary hypertension 03/19/2023 Rotator cuff tendinitis, left 08/19/2019 Myalgia 08/17/2019 Carpal tunnel syndrome on left 06/08/2019 Overview (06/08/2019): Added automatically from request for surgery [id number] Cubital tunnel syndrome on left 06/08/2019 Overview (06/08/2019): Added automatically from request for surgery [id number] Right inguinal hernia 12/13/2015 Overview (07/14/2016): Right inguinal hernia Osteoarthritis 08/22/2013 Overview (07/13/2016): DJD (degenerative joint disease) Benign prostatic hyperplasia 08/22/2013 Overview (07/13/2016): BPH (benign prostatic hypertrophy) Hyperlipidemia 08/22/2013 Overview (07/13/2016): Hyperlipidemia Cerebral infarction 09/17/2008 Overview (07/13/2016): CVA (cerebral infarction) Hypothyroidism 09/26/1998 Overview (07/11/2016): Hypothyroidism Generalized body aches Immunizations Name Administration Dates Next Due Pneumococcal Polysaccharide PPV23 04/10/2004 Td, adsorbed 06/19/2006 Social History Tobacco Use Types Packs/Day Years Used Date Smoking Tobacco: Never Smokeless Tobacco: Never Alcohol Use Standard Drinks/Week Comments No 0 (1 standard drink = 0.6 oz pur e alcohol) [facility] Utilities Answer Date Recorded In the past 12 months has e [employer], gas, oil, or water [employer] threatened to shut off services in your home? No 03/20/2023 Social Connection and Isolat ion Panel [NHANES] Answer Date Recorded In a typical week, how many times do you talk on the phone with family, friends, or neighbors? More than three times a week 03/20/2023 How often do you get togethe r with friends or relatives? More than three times a week 03/20/2023 How often do you attend chur ch or latter day services? Never 03/20/2023 Do you belong to any clubs o r organizations such as bahai groups, unions, fraternal or athletic groups, or school groups? No 03/20/2023 How often do you attend meet ings of the clubs or organizations you belong to? Never 03/20/2023 Are you , , di vorced, , never , or living with a partner? 03/20/2023 AUDIT-C Answer Date Recorded Q1: How often do you have a drink containing alcohol? Never 07/31/2023 Q2: How many drinks containi ng alcohol do you have on a typical day when you are drinking? Patient does not drink Q3: How often do you have si x or more drinks on one occasion? Never 07/31/2023 Overall Financial Resource Strain (CARDIA) Answe r Date Recorded How hard is it for you to pa y for the very basics like food, housing, medical care, and heating? Not hard at all 03/20/2023 PHQ-2 Answer Date Recorded PHQ-2 Total Score (If total score is 3 or more points, staff should administer the PHQ-9) 1 08/17/2019 Hunger Vital Sign Answer Date Recorded Within the past 12 months, y ou worried that your food would run out before you got the money to buy more. Never true 03/20/20 23 Within the past 12 months, t he food you bought just didn't last and you didn't have money to get more. Never true 03/20/2023 PRAPARE - Transportation Answer Date Re corded In the past 12 months, has l ack of transportation kept you from medical appointments or from getting medications? No 03/08 In the past 12 months, has l ack of transportation kept you from meetings, work, or from getting things needed for daily living? No 03/20/2023 Housing Stability Vital Sign Answer Zhao e Recorded In the last 12 months, was t here a time when you were not able to pay the mortgage or rent on time? No 03/20/2023 In the last 12 months, how many places have you lived? 1 03/20/2023 In the last 12 months, was t here a time when you did not have a steady place to sleep or slept in a half-way (including now)? No 03/20/2023 Personal Safety Answer Date Recorded Have you ever been in or are you currently in a harmful physical or emotional relationship or is someone making you feel afraid or unsafe? Denies 07/31/2023 Education Answer Date Recorded What is the highest level of school you have completed or the highest degree you have received? 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 Gender Identity Not on file Sexual Orientation Not on file Last Filed Vital Signs Vital Sign Reading Time Taken Comments Blood Pressure 146/82 07/31/2023 3:49 PM CDT Pulse 69 07/31/2023 3:49 PM CDT Temperature 36.1 C (97 F) 07/31/2023 3:49 PM CDT Respiratory Rate 18 07/31/2023 3:49 PM CDT Oxygen Saturation 100% 07/31/2023 3:49 PM CDT Inhaled Oxygen Concentration - - Weight 70.3 kg (154 lb 15.7 oz) 07/31/2023 1:46 PM CDT Height 172.7 cm (5' 8 ) 07/31/2023 1:46 PM CDT Body Mass Index 23.57 07/31/2023 1:46 PM CDT Plan of Treatment Not on file Medical Devices Implanted Type Area Preschool Paraprofessional Device Identifier Shelf Expiration Date Model / Serial / Lot [employer] Jorje Advanix Naviflex 8.5fr 7cm Rapid Exchange Preload Taper Tip [id number] - [id number] Implanted:Qty: 1 on 03/20/2023 by Audra Gilliam MD at [facility] Stent [employer] 05/02/2024 [id number] / / [id number] Pacemaker Right: Chest Insurance MEDICARE TNA AETNA [facility] MEDICARE AETNA SENIOR SUPPLEMENT AETNA AETNA SENIOR SUPPLEMENT MEDICARE AETNA SENIOR SUPPLEMENT Advance Directives For more information, please contact: [phone] * Full Code (Latest Code Status on File) Date Activated Date Inactivated Comments 07/31/2023 1:38 PM 07/31/2023 8:02 PM * Full Code Date Activated Date Inactivated Comments 07/31/2023 1:37 PM 07/31/2023 1:38 PM * Full Code Date Activated Date Inactivated Comments 03/20/2023 2:14 PM 03/21/2023 8:28 PM * Full Code Date Activated Date Inactivated Comments 03/19/2023 9:30 AM 03/20/2023 2:14 PM * Full Code Date Activated Date Inactivated Comments 08/17/2019 12:39 PM 08/19/2019 7:36 PM Care Teams Partition Assembler Relationship Specialty Start Date End Date Jorge A Carlton MD PCP - General 01/03/16 Kalin Sow MD Billboard Erector Transplant 06/05/19 Fred Nichols MD [address] [place] [address] [address] [place] [address] Surgeon Orthopedic Surgery 08/19/19 Audra Gilliam MD [address] [place] [address] [address] [place] [address] Consulting Physician Gastroenterology 03/21/23
--- OUTSIDE RECORDS SUMMARY | 2024-05-22 14:07 | XMS_ITS | Clinical Summary ---
Author Organization [facility] Address [address] [place] [address] Phone Care Team Providers Care Painting Machine Operator Name Role Phone Jorge A Carlton MD Primary Care Provider [phone] Allergies No known active allergies Medications levothyroxine (SYNTHROID) 100 MCG Tablet 04/18/2017 Active pantoprazole (PROTONIX) 20 MG Tablet Delayed Response TK 1 T PO D 1 05/21/2017 Active simvastatin (ZOCOR) 10 MG Tablet TK 1 T PO D 1 05/21/2017 Active Aspirin 81 MG Tablet Take 81 mg by mouth daily. Active tamsulosin (FLOMAX) 0.4 MG Capsule Take 2 Caps by mouth daily. 90 Cap 3 10/13/2018 Active Social History Tobacco Use Types Packs/Day Years Used Date Smoking Tobacco: Never Smokeless Tobacco: Never Alcohol Use Standard Drinks/Week Comments No 0 (1 standard drink = 0.6 oz pur e alcohol) Sexually Active Control Partners Comments Never Sex and Gender Information Value Date Recorded Sex Assigned at Not on file Legal Sex Male 11:16 PM CDT Gender Identity Not on file Sexual Orientation Not on file Last Filed Vital Signs Vital Sign Reading Time Taken Comments Blood Pressure 132/84 08/01/2017 10:51 AM CDT Pulse 70 08/01/2017 10:51 AM CDT Temperature 36.5 C (97.7 F) 08/01/2017 10:51 AM CDT Respiratory Rate 17 08/01/2017 10:51 AM CDT Oxygen Saturation 96% 08/01/2017 10:51 AM CDT Inhaled Oxygen Concentration - - Weight 70.3 kg (155 lb) 08/01/2017 10:51 AM CDT per patient Height 172.7 cm (5' 8 ) 08/01/2017 10:51 AM CDT Body Mass Index 23.57 08/01/2017 10:51 AM CDT Plan of Treatment Health Maintenance Due Date Last Done Comments Hepatitis C Virus (HCV) Screening 1940 TdaP Immunization 1940 Zoster Immunization (1 of 2) 07/27/1989 Respiratory Syncytial Virus (RSV) Immunization (Adult) (1 - 1-dose 75+ series) 07/27/2014 Influenza Immunization (#1) 12/08/20230 06/2015, 04/19/2015 SARS-COV-2 Immunization ( season) 2023 06/17/2020, 05/27/2020 Pneumococcal Immunization (50+ years) Completed 05/31/2017, 01/24/2015 Pneumococcal Immunization Combined Discontinued 05/31/2017, 01/24/2015 Hepatitis B Immunization Aged Out No longer eligible based on patient's age to complete this topic Meningococcal Immunization (ACWY) Aged Out No longer eligible based on patient's age to complete this topic Rotavirus Immunization Aged Out No lo nger eligible based on patient's age to complete this topic Insurance COMMERCIAL GENERIC MEDICARE Care Teams Painting Machine Operator Relationship Specialty Start Date End Date Jorge A Carlton MD [address] [place] [address] PCP - General Internal Medicine 07/04/17
--- OUTSIDE RECORDS SUMMARY | 2024-05-22 14:07 | XMS_ITS | Clinical Summary ---
Author Organization [facility] Virtual Care Address [address] [place] [phone] Phone Care Team Providers Care Finish Molder Name Role Phone Jorge A Carlton MD Primary Care Provider [phone] Kalin Sow MD Unavailable [phone] Fred Nichols MD Unavailable [phone] Audra Gilliam MD Unavailable [phone] Allergies No known active allergies Medications levothyroxine [...] (06/08/2019): Added automatically from request for surgery [id number] Cubital tunnel syndrome on left 06/08/2019 Overview (06/08/2019): Added automatically from request for surgery [id number] Right inguinal hernia 12/13/2015 Overview (07/14/2016): Right inguinal hernia Osteoarthritis 08/22/2013 Overview (07/13/2016): DJD (degenerative joint disease) Benign prostatic hyperplasia 08/22/2013 Overview (07/13/2016): BPH (benign prostatic hypertrophy) Hyperlipidemia 08/22/2013 Overview (07/13/2016): Hyperlipidemia Cerebral infarction 09/17/2008 Overview (07/13/2016): CVA (cerebral infarction) Hypothyroidism 09/26/1998 Overview (07/11/2016): Hypothyroidism Generalized body aches Immunizations Name Administration Dates Next Due Pneumococcal Polysaccharide PPV23 04/10/2004 Td, adsorbed 06/19/2006 Surgical History Surgery Date Site/Laterality Comments CATARACT EXTRACTION Bilateral cataract surgery COLONOSCOPY about 10 years ago CHOLECYSTECTOMY 11/2022 PROSTATE SURGERY biopsy not removed 12/2022 INSERT / REPLACE / REMOVE PACEMAKER [employer] Medical History Medical History Date Comments Disorder of thyroid Thyroid dise ase Hypercholesterolemia High choles terol; Comments: GDS 12/13/2015 - GERD (gastroesophageal reflux disease) Hypothyroidism Cerebrovascular accident (CVA) (HCC) TIA Hypertension Family History Medical History Relation Name Comments Colon cancer Brother Cancer -colon; Coronary artery disease Father Uriel nary artery disease; Heart attack Father COPD Mother COPD; Lung cancer Mother Cancer, lung; C ause of : Cancer, lung Stroke Mother Hypertension Other Family history of Hypertension; Relation Name Status Comments Brother Father Mother Other Social History Tobacco Use Types Packs/Day Years Used Date Smoking Tobacco: Never Smokeless Tobacco: Never Alcohol Use Standard Drinks/Week Comments No 0 (1 standard drink = 0.6 oz pur e alcohol) [facility] Utilities Answer Date Recorded In the past 12 months has th e electric, gas, oil, or water company threatened to shut off services in your [...] often do you attend chur ch or sikhism services? Never 03/20/2023 Do you belong to any clubs o r organizations such as advent groups, unions, fraternal or athletic groups, or [...] place to sleep or slept in a long-term (including now)? 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 Gender Identity Not on file Sexual Orientation Not on file Obstetrics History Last Filed Vital Signs Vital Sign Reading [...] 07/31/2023 1:46 PM CDT Plan of Treatment Health Maintenance Due Date Last Done Comments Hepatitis B Screening 07/27/1958 Zoster Vaccine (1 of 2) 07/27/1989 Well Visit 65+ 07/27/2004 DTaP/Tdap/Td Vaccine (1 - Tdap) 06/20/2006 7 Depression Screening 08/16/2020 08/17/2019 Influenza Vaccine (#1) 2023 9, 11/29/2016, 02/09/2016, Additional history exists Fall Risk Assessment 07/14/2024 07/15/2023, 03/21/20 23 Pneumococcal vaccine 65+ Completed 018, 01/24/2015, 04/10/2004 Medical Devices Implanted Type Area Weapons Mechanic Device Identifier Shelf Expiration Date Model / Serial / Lot [employer] Jorje Advanix Naviflex 8.5fr 7cm Rapid Exchange Preload Taper Tip [id number] - [id number] Implanted:Qty: 1 on 03/20/2023 by Audra Gilliam MD at [facility] Stent [employer] 05/02/2024 [id number] / / [id number] Pacemaker Right: Chest Insurance MEDICARE AETNA AETNA SENIOR SUPPLEMENT MEDICARE AETNA SENIOR SUPPLEMENT AETNA AET SENIOR SUPPLEMENT MEDICARE AETNA SENIOR SUPPLEMENT Advance Directives For more information, please contact: [phone] * Full Code (Latest Code Status on [...] 12:39 PM 08/19/2019 7:36 PM Care Teams Finish Molder Relationship Specialty Start Date End Date Jorge A Carlton MD PCP - General 01/03/16 Kalin Sow MD Senior Director Creative Services Transplant 06/05/19 Fred Nichols MD [address] [place] [address] DR [address]Z [address] [facility] [address] [place] [address] Surgeon Orthopedic Surgery 08/19/19 Audra Gilliam MD [address] [place] [address] [address] [place] [address] Consulting Physician Gastroenterology 03/21/23
--- OUTSIDE RECORDS SUMMARY | 2024-05-22 14:07 | XMS_ITS | Referral Summary ---
Author Organization [facility] Address [address] [place] [address] Care Team Providers Care Wall Insulation Sprayer Name Role Phone Jorge A Carlton MD Primary Care Provider [phone] Source Comments [facility],non-owned Affiliates and Associated Physician Practices is amultiple site organization consisting of ambulatory clinics and hospital sitesin [place], [place], [place] and [place]. This disclosure is being madepursuant to the Care Everywhere program and may not contain all information available regarding this patient. Last updated 17.[facility] [employer] Social History Tobacco Use Types Packs/Day Years Used Date Smoking Tobacco: Never Assessed Sex and Gender Information Value Date Recorded Sex Assigned at Not on file Gender Identity Not on file Sexual Orientation Not on file Plan of Treatment Not on file Care Teams Wall Insulation Sprayer Relationship Specialty Start Date End Date Jorge A Carlton MD [address] [place] [address] PCP - General Internal Medicine 02/02/20
--- OUTSIDE RECORDS SUMMARY | 2024-05-22 14:07 | XMS_ITS | Patient Health Summary ---
Author Organization [facility] Factual Address [address] [address] Care Team Providers Care Script Editor Name Role Phone Jorge A Carlton MD Primary Care Provider [phone] Note from [facility],non-owned Affiliates and Associated Physician Practices is amultiple site organization consisting of ambulatory clinics and hospital sitesin [place], [place], [place]. This disclosure is being madepursuant to the Care Everywhere program and may not contain all information available regarding this patient. Last updated 17.[facility] Factual Social History Tobacco Use Types Packs/Day Years Used Date Smoking Tobacco: Never Assessed Sex and Gender Information Value Date Recorded Sex Assigned at Not on file Gender Identity Not on file Sexual Orientation Not on file Procedures * DEXA BONE DENSITY AXIAL SKELETON(Performed 02/02/2020) Performed for Polymyalgia rheumatica syndrome (HCC) Results * DEXA BONE DENSITY AXIAL SKELETON (02/02/2020 12:53 PM CDT) Anatomical Region Laterality Modality Mammography 02/02/2020 2:05 PM CDT Narrative 02/02/2020 2:05 PM CDT BONE MINERAL DENSITY STUDY INDICATION: Osteoporosis screening. Male patient. FINDINGS: The average bone mineral density from L1 to L4 is1.101 g/cm2. The T-score is -1.0 and the Z-score is 0.0. Lowest measurement is at L3 with a T score -1.3. The average bone mineral density of the total mean hips is 0.970 g/cm2. The T-score is -0.9 and the Z-score is 0.4 . Lowest measurement left femoral neck with a T score -1.7. ASSESSMENT: Outlying low measurement are osteopenic. Increased fracture risk. WORLD HEALTH ORGANIZATION DEFINITIONS OSTEOPENIA = -1 to -2.5 SD BELOW T SCORE. OSTEOPOROSIS = Less than -2.5 SD BELOW T SCORE *Reading Radiologist: Ladonna Seay on 02/02/2020 at 2:05 PM Procedure Note Ladonna Seay MD - 02/02/2020 BONE MINERAL DENSITY STUDY INDICATION: Osteoporosis screening. Male patient. FINDINGS: The average bone mineral density from L1 to L4 is1.101 g/cm2. The T-score is -1.0 and the Z-score is 0.0. Lowest measurement is at L3 with a T score -1.3. The average bone mineral density of the total mean hips is 0.970 g/cm2. The T-score is -0.9 and the Z-score is 0.4 . Lowest measurement left femoral neck with a T score -1.7. ASSESSMENT: Outlying low measurement are osteopenic. Increased fracture risk. WORLD HEALTH ORGANIZATION DEFINITIONS OSTEOPENIA = -1 to -2.5 SD BELOW T SCORE. OSTEOPOROSIS = Less than -2.5 SD BELOW T SCORE *Reading Radiologist: Ladonna Seay on 02/02/2020 at 2:05 PM Torsten Vealsco MD DEXA ORDERABLES Care Teams Script Editor Relationship Specialty Start Date End Date Jorge A Carlton MD [address] [place] [address] PCP - General Internal Medicine 02/02/20
--- OUTSIDE RECORDS SUMMARY | 2024-05-22 14:07 | XMS_ITS | Clinical Summary ---
Author Organization [facility] Address [address] [place] [address] Care Team Providers Care Credit Portfolio Manager Name Role Phone Jorge A Carlton MD Primary Care Provider [phone] Source Comments [facility],non-owned Affiliates and Associated Physician Practices is amultiple site organization consisting of ambulatory clinics and hospital sitesin [place], [place], [place] and [place]. This disclosure is being madepursuant to the Care Everywhere program and may not contain all information available regarding this patient. Last updated 17.[facility] Social History Tobacco Use Types Packs/Day Years Used Date Smoking Tobacco: Never Assessed Sex and Gender Information Value Date Recorded Sex Assigned at Not on file Gender Identity Not on file Sexual Orientation Not on file Plan of Treatment Health Maintenance Due Date Last Done Comments MEDICARE AWV 12 MONTHS 1940 DTAP/TDAP/TD VACCINES (1 - Tdap) 07/27/1958 PNEUMOCOCCAL VACCINE 50+ (1 of 1 - PCV) 07/27/1989 ZOSTER VACCINE (1 of 2) 07/27/1989 Respiratory Syncytial Virus (RSV) Vaccine Pt: or over 60 yrs (1 - 1-dose 75+ series) 07/27/2014 COVID-19 VACCINE ( - 2023-2 5 season) 2023 INFLUENZA VACCINE (#1) 2023 DEPRESSION SCREENING 04/08/2024 HEPATITIS B VACCINE Aged Out No longe r eligible based on patient's age to complete this topic HIB VACCINE Aged Out No longer eligi ble based on patient's age to complete this topic HPV VACCINE Aged Out No longer eligi ble based on patient's age to complete this topic MENINGOCOCCAL (Group B) VACCINE Aged Out No longer eligible based on patient's age to complete this topic MENINGOCOCCAL VACCINE Aged Out No landen josef eligible based on patient's age to complete this topic Care Teams Credit Portfolio Manager Relationship Specialty Start Date End Date Jorge A Carlton MD [address] [place] [address] PCP - General Internal Medicine 02/02/20
[2024-05-22 15:22] LABS: Alanine Aminotransferase 27 U/L (16-63); Albumin Level 4.1 g/dL (3.4-5.0); Alkaline Phosphatase 75 U/L (46-116); Anion Gap 10 mmol/L (4-12); Aspartate Amino Transferase 22 U/L (15-37); Blood Urea Nitrogen 17 mg/dL (7-18); Carbon Dioxide 28 mmol/L (21-32); Chloride 104 mmol/L (98-108); Estimated Glomerular Filt Rate 54; Glucose 102 mg/dL (70-99); Osmolality Calculated 295 mOsm/kg (285-295); Potassium 4.1 mmol/L (3.5-5.1); Sodium 142 mmol/L (136-145); Total Protein 7.2 g/dL (6.4-8.2)
== END 2024-05-22 14:01 | disposition home or self-care (01) ==
LOC: CHSLAB 14:02
PROVIDERS: PCP Internal Medicine; Visit Provider Internal Medicine
DX: N18.30 Chronic kidney disease, stage 3 unspecified (principal); E03.9 Hypothyroidism, unspecified
CPT/HCPCS: 36415; 80053; 84443

== ENCOUNTER 2024-09-27 10:08 | Emergency (ER) | payer MEDICARE, SELFPAY ==
--- NOTE | ~2024-09-27 | XR_ITS ---
Clinical Indication: Cough PA and lateral views of the chest: Comparison: 09/28/2020 Findings: There is mild haziness at the right middle lobe. Cardiomediastinal silhouette is within nor mal limits, with pacemaker device. Bones and soft tissues are unremarkable. Impression: Mild hazy airspace disease right middle lobe. Right middle lobe pneumonia is a consideration. Reviewed, dictated and finalized at location . Impression: Mild hazy airspace disease right middle lobe. Right middle lobe pneumonia is a consideration.
[2024-09-27 10:17] VITALS: BP 143/64; PULSE 71; RESP 22; TEMP 36.9; O2SAT 100
--- NOTE | 2024-09-27 10:51 | ED_ITS ---
HPI - URI/Sore Throat General Chief Complaint: Upper Respiratory Infection Stated Complaint: Cough/Chest Congestion Source: patient Mode of arrival: ambulatory Limitations: no limitations History of Present Illness HPI Narrative: 84 y/o male with hx CAD presented for c/o frequent deep cough for one week. Says the cough is raspy and worse at night. Pt states he had a cold last week and the cough has persisted. Also reports runny nose. Denies decreased appetite, n/v/d/f/c. Denies chest pain, sob, wheezing, or lethargy. Pt had pneumonia one month ago treated by pcp. Says he had improvement in symptoms after treatment. Related Data Home Medications ?Medication ?Instructions ?Recorded ?Confirmed ?Last Taken ?Type amlodipine 5 mg tablet 5 mg PO DAILY 11/02/22 12/22/22 Unknown History aspirin 81 mg tablet,delayed 81 mg PO DAILY 11/02/22 12/22/22 Unknown History release (Adult Aspirin Regimen) finasteride 5 mg tablet 5 mg PO DAILY 11/02/22 12/22/22 Unknown History levothyroxine 88 mcg capsule 88 mcg PO DAILY 11/02/22 12/22/22 Unknown History pantoprazole 40 mg tablet,delayed 40 mg PO QAM 11/02/22 12/22/22 Unknown History release prednisone 2.5 mg tablet 2.5 mg PO DAILY 11/02/22 12/22/22 Unknown History simvastatin 20 mg tablet 20 mg PO DAILY 11/02/22 12/22/22 Unknown History Allergies Allergy/AdvReac Type Severity Reaction Status Date / Time No Known Allergies Allergy Unverified 11/30/22 10:50 Review of Systems Review of Systems: CONSTITUTIONAL: Denies body aches, fever, chills, or sweats. EYES: Denies visual changes, redness, or discharge. ENT: reports rhinorrhea, Denies congestion, sore throat, or otalgia. CARDIOVASCULAR: Denies chest pain, palpitations, or edema. RESPIRATORY: Reports cough, denies sob, wheezing. GASTROINTESTINAL: Denies abdominal pain, nausea, vomiting, or diarrhea. SKIN: Denies rash NEUROLOGIC: Denies headache, numbness, tingling, or weakness. All systems reviewed & are unremarkable except as noted in HPI and below PMFSH Past Medical History Medical History (Updated 09/27/24 @ 11:32 by Ivanna Boucher, HARPOON ENGAGEMENT PLANNING OPERATOR) Hypothyroidism MARTA (obstructive sleep apnea) Hypertension Hyperlipidemia ICD (implantable cardioverter-defibrillator) in place TIA (transient ischemic attack) CAD (coronary artery disease) Pacemaker Surgical History Surgical History (Updated 12/20/22 @ 13:57 by Layne Azul, FRED) History of laparoscopic cholecystectomy on 11/30/22 [facility] S/P hernia repair Family History Family History Father Acute myocardial infarction Unknown Heart disease Social History Social History Smoking status: Never smoker Second hand tobacco smoke exposure: No Alcohol intake: never Substance use: never Substance use type: does not use Living arrangements: alone Spiritual care concerns: No Comments At time of signature, I have reviewed and agree with nursing past medical, surgical, social and family history unless otherwise noted. Please see nursing chart for further information. There is no relevant family history pertinent to the presenting complaint Exam Narrative: GENERAL: Well-appearing, in no acute distress. EYES: EOMI. No redness or drainage. Conjunctivae normal. ENT: Mucous membranes pink and moist. TMs normal bilaterally. NECK: Normal AROM. Supple. CHEST: No respiratory distress. Lungs clear to all eaton. frequent moist nonproductive cough noted HEART: Regular rate and rhythm. No murmur appreciated. ABDOMEN: Soft, nontender, nondistended, normal active bowel sounds. EXTREMITIES: Normal range of motion. No edema. SKIN: Warm, dry, no rash. Capillary refill normal. Normal skin turgor. NEURO: Alert and oriented x3. Gait steady. PSYCH: Normal affect. Course Course Emergency Course: Patient is aware of diagnosis, understands and agrees to treatment plan. Anticipatory guidance given. Patient agrees to follow-up as directed and is aware of reasons to seek care at the emergency department. Portions of this record may have been created with voice recognition software Level of Care: Express Care Visit Vital Signs Vital signs: Vital Signs Temperature 98.5 F 09/27/24 10:17 Pulse Rate 71 09/27/24 10:17 Respiratory Rate 22 H 09/27/24 10:17 Blood Pressure 143/64 H 09/27/24 10:17 Pulse Oximetry 100 09/27/24 10:17 Oxygen Delivery Room Air 09/27/24 10:17 Temperature 98.5 F 09/27/24 10:17 Pulse Rate 71 09/27/24 10:17 Respiratory Rate 22 H 09/27/24 10:17 Blood Pressure 143/64 H 09/27/24 10:17 Pulse Oximetry 100 09/27/24 10:17 Oxygen Delivery Room Air 09/27/24 10:17 MDM - URI/Sore Throat MDM Narrative Medical decision making narrative: Discussed physical exam findings and CXR. Reviewed RX. Pt is scheduled with pcp this week. Pt is in stable condition. Advised supportive measures and signs/symptoms to go to the ER. Pt is appropriate for outpt treatment and f/u. Differential Diagnosis Differential diagnosis: Likely upper respiratory infection, sinusitis, viral infection, bronchitis, pharyngitis and other (Angioedema, perforation, asthma, pneumonia, PE, tension pneumothorax, cardiac tamponade [place], pericarditis, pleural effusion, CHF, bronchitis, cardiac arrhythmia) Imaging Data Radiologist's impression: Patient: Jesús Cruz : 1940 MR#: [id number] Age: 84 Acct:[id number] Loc: [facility] ADM Date: 09/27/24Attending Dr: Ordering Physician: Ivanna Boucher APRN Date of Service: 09/27/24 Procedure(s): XR chest 2V Accession Number(s): [id number] cc: Ivanna Boucher APRN; Jorge A Carlton MD~ Clinical Indication: Cough PA and lateral views of the chest: Comparison: 09/28/2020 Findings: There is mild haziness at the right middle lobe. Cardiomediastinal silhouette is within normal limits, with pacemaker device. Bones and soft tissues are unremarkable. Impression: Mild hazy airspace disease right middle lobe. Right middle lobe pneumonia is a consideration. Discharge Plan Discharge Clinical Impression: Pneumonia Patient Disposition: Home Condition: Stable Instructions: Antibiotic Form, Pneumonia (ED) Additional Instructions: Pneumonia is a lung infection that can cause a fever, cough, and trouble breathing. How it spreads: When someone with bacterial pneumonia coughs, sneezes, or talks, they release respiratory droplets into the air that can be inhaled by others.?You can also get pneumonia by touching a contaminated surface or object and then touching your mouth or nose. You're generally contagious for around 48 hours after starting antibiotics and your fever goes away.? To prevent the spread of pneumonia, you can:? ? Get vaccinated? ? Wash your hands often with soap and water for 20 seconds? ? Cover your mouth with a tissue when you cough or sneeze? ? Avoid people who are already sick with pneumonia? ? Stay home when you have pneumonia Recommendations: Take antibiotics as directed until complete. eat small frequent meals. Get lots of rest and drink fluids. Alternate Tylenol and ibuprofen for pain/fever Yakr-xpd-pxchzik cough medication can cause drowsiness, take according to package directions If you have nasal congestion or drainage, you can take Zyrtec, Claritin along with Flonase spray Keep your scheduled appointment with your PCP this week. Go to the ER for worsening symptoms or concerns (trouble breathing, dizziness, pain, vomiting, fever, fatigue etc) Patient Language: Bangladeshi Prescriptions: New azithromycin [Zithromax Z-Tan] 250 mg tablet See Rx Instructions .ROUTE .COMPLEX Qty: 6 0RF Rx Instructions: For 250 mg dose pack: take 500 mg today (day 1), then 250 mg for 4 days (days 2-5) amoxicillin-pot clavulanate 875-125 mg tablet 1 tablet PO Q12H 7 Days Qty: 14 0RF No Action prednisone 2.5 mg tablet 2.5 mg PO DAILY aspirin [Adult Aspirin Regimen] 81 mg tablet,delayed release (DR/EC) 81 mg PO DAILY amlodipine 5 mg tablet 5 mg PO DAILY finasteride 5 mg tablet 5 mg PO DAILY levothyroxine 88 mcg capsule 88 mcg PO DAILY pantoprazole 40 mg tablet,delayed release (DR/EC) 40 mg PO QAM simvastatin 20 mg tablet 20 mg PO DAILY oxycodone-acetaminophen [Endocet] 5-325 mg tablet 0.5 - 1 tablet PO Q4H PRN (Reason: pain) Qty: 7 0RF Follow-up/Referrals: Jorge A Carlton MD [Primary Care Provider] -
== END 2024-09-27 11:40 | disposition home or self-care (01) ==
PROVIDERS: Emergency Provider Nurse Practitioner Family; PCP Internal Medicine
DX: J18.9 Pneumonia, unspecified organism (principal); I25.10 Atherosclerotic heart disease of native coronary artery without angina pectoris; E03.9 Hypothyroidism, unspecified; I10 Essential (primary) hypertension; E78.5 Hyperlipidemia, unspecified; Z86.73 Personal history of transient ischemic attack (TIA), and cerebral infarction without residual deficits
CPT/HCPCS: 71046; 99213; G0463

== ENCOUNTER 2024-10-10 07:41 | Outpatient (CLI) | payer MEDICARE, SELFPAY ==
--- NOTE | ~2024-10-10 | XR_ITS ---
EXAMINATION: XR chest 2V Exam Date/Time: 10/10/2024 8:00 CDT HISTORY: recurrent pneumonia x1 week prior Comparison: 09/27/2024. RESULT: Lines, tubes, and devices: Right chest pacemaker, with intact leads. Lungs and pleura: Improving right middle lobe opacities. Cardiomediastinal silhouette: Stable. Small hiatal hernia. Other: No acute osseous or upper abdominal finding. IMPRESSION: Improving right middle lobe opacities. Recommend continued radiographic follow-up to ensure resolutio n. Reviewed, dictated and finalized at location K. IMPRESSION: Improving right middle lobe opacities. Recommend continued radiographic follow- up to ensure resolution.
--- OUTSIDE RECORDS SUMMARY | 2024-10-10 07:44 | XMS_ITS | Clinical Summary ---
Author Organization [facility] Address [address] [place] [address] Care Team Providers Care Visual Education Teacher Name Role Phone Jorge A Carlton MD Primary Care Provider [phone] Source Comments [facility],non-owned Affiliates and Associated Physician Practices is amultiple site organization consisting of ambulatory clinics and hospital sitesin [place], [place], [place] and [place]. This disclosure is being madepursuant to the Care Everywhere program and may not contain all information available regarding this patient. Last updated 17.[facility] [employer] Social History Tobacco Use Types Packs/Day Years Used Date Smoking Tobacco: Never Assessed Sex and Gender Information Value Date Recorded Sex Assigned at Not on file Legal Sex Male 11:43 AM CDT Gender Identity Not on file Sexual [...] VACCINE ( - 2023-2 5 season) 2023 DEPRESSION SCREENING 04/08/2024 INFLUENZA VACCINE (#1) 2024 HEPATITIS B VACCINE Aged Out No longe r eligible based on patient's age to complete this topic HIB VACCINE Aged Out No longer eligi ble based on patient's age to complete this topic HPV VACCINE Aged Out No longer eligi ble based on patient's age to complete this topic MENINGOCOCCAL (Group B) VACC INE SHARED DECISION-MAKING Aged Out No longer eligibl e based on patient's age to complete this topic MENINGOCOCCAL GROUPS A/C/Y/W VACCINE Aged Out No longer eligible b ased on patient's age to complete this topic Insurance MEDICARE AET MEDICARE MEDICARE Care Teams Visual Education Teacher Relationship Specialty Start Date End Date Jorge A Carlton MD [address] [place] [address] PCP - General Internal Medicine 02/02/20
--- OUTSIDE RECORDS SUMMARY | 2024-10-10 07:44 | XMS_ITS | Referral Summary ---
Author Organization [facility] Virtual Care Address [address] [place] [address] Phone Care Team Providers Care Evp Managing Director Name Role Phone Jorge A Carlton MD Primary Care Provider [phone] Kalin Sow MD Unavailable [phone] Fred Nichols MD Unavailable [phone] Audra Gilliam MD Unavailable [phone] Allergies No known active allergies Medications levothyroxine [...] (06/08/2019): Added automatically from request for surgery [id number] Cubital tunnel syndrome on left 06/08/2019 Overview (06/08/2019): Added automatically from request for surgery [id number] Right inguinal hernia 12/13/2015 Overview (07/14/2016): Right inguinal hernia Osteoarthritis 08/22/2013 Overview (07/13/2016): DJD (degenerative joint disease) Benign prostatic hyperplasia 08/22/2013 Overview (07/13/2016): BPH (benign prostatic hypertrophy) Hyperlipidemia 08/22/2013 Overview (07/13/2016): Hyperlipidemia Cerebral infarction 09/17/2008 Overview (07/13/2016): CVA (cerebral infarction) Hypothyroidism 09/26/1998 Overview (07/11/2016): Hypothyroidism Generalized body aches Immunizations Immunization Administration Dates Next Due Pneumococcal Polysaccharide PPV23 04/10/2004 Td, adsorbed 06/19/2006 Social History Tobacco Use Types Packs/Day Years Used Date Smoking Tobacco: Never Smokeless Tobacco: Never Alcohol Use Standard Drinks/Week Comments No 0 (1 standard drink = 0.6 oz pur e alcohol) [facility] Utilities Answer Date Recorded In the past 12 months has e [employer] PT[employer], gas, oil, or water [employer] threatened to shut off services in your [...] often do you attend chur ch or tenriism services? Never 03/20/2023 Do you belong to any clubs o r organizations such as temple groups, unions, fraternal or athletic groups, or [...] place to sleep or slept in a assisted (including now)? 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 Gender Identity Not on file Sexual Orientation [...] 1:46 PM CDT Height 172.7 cm (5' 8) 07/31/2023 1:46 PM CDT Body Mass Index 23.57 07/31/2023 1:46 PM CDT Plan of Treatment Not on file Medical Devices Implanted Type Area Rn Wound Device Identifier Shelf Expiration Date Model / Serial / Lot [employer] Jorje Advanix Naviflex 8.5fr 7cm Rapid Exchange Preload Taper Tip [id number] - [id number] Implanted:Qty: 1 on 03/20/2023 by Audra Gilliam MD at [facility] Stent [employer] Jorje 05/02/2024 [id number] / / [id number] Pacemaker Right: Chest Insurance MEDICARE TNA AETNA [facility] MEDICARE AETNA SENIOR SUPPLEMENT AETNA AETNA SENIOR SUPPLEMENT MEDICARE AETNA SENIOR SUPPLEMENT Advance Directives For more information, please contact: [phone] * Full Code (Latest Code Status on [...] 12:39 PM 08/19/2019 7:36 PM Care Teams Evp Managing Director Relationship Specialty Start Date End Date Jorge A Carlton MD PCP - General 01/03/16 Kalin Sow MD Interior Assemblies Developer Prover Transplant 06/05/19 Fred Nichols MD [address] [place] [address] [address] [place] [address] Surgeon Orthopedic Surgery 08/19/19 Audra Gilliam MD [address] [place] [address] [address] [place] [address] Consulting Physician Gastroenterology 03/21/23
--- OUTSIDE RECORDS SUMMARY | 2024-10-10 07:44 | XMS_ITS | Clinical Summary ---
Author Organization [facility] Address [address] [place] [address] Phone Care Team Providers Care Mining Captain Name Role Phone Jorge A Carlton MD Primary Care Provider [phone] Allergies No known active allergies Medications levothyroxine [...] CDT per patient Height 172.7 cm (5' 8) 08/01/2017 10:51 AM CDT Body Mass Index 23.57 08/01/2017 10:51 AM CDT Plan of Treatment Health Maintenance Due Date Last Done Comments Hepatitis C Virus (HCV) Screening 1940 TdaP Immunization 1940 Zoster Immunization (1 of 2) 07/27/1989 Respiratory Syncytial Virus (RSV) Immunization (Adult) (1 - 1-dose 75+ series) 07/27/2014 SARS-COV-2 Immunization ( season) 2023 06/17/2020, 05/27/2020 Influenza Immunization (#1) 12/07/202411/07, 02/09/2016, 04/19/2015 Pneumococcal Immunization (5 0+ years) Completed 05/31/2017, 01/24/2015 Pneumococcal Immunization Combined Discontinued 05/31/2017, 01/24/2015 Hepatitis B Immunization Aged Out No longer eligible based on patient's age to complete this topic Human Papillomavirus (HPV) Immunization Aged Out No longer eligible based on patient's age to complete this topic Meningococcal Immunization (ACWY) Aged Out No longer eligible based on patient's age to complete this topic Rotavirus Immunization Aged Out No lo nger eligible based on patient's age to complete this topic Insurance COMMERCIAL GENERIC MEDICARE Care Teams Mining Captain Relationship Specialty Start Date End Date Jorge A Carlton MD [address] [place] [address] PCP - General Internal Medicine 07/04/17
--- OUTSIDE RECORDS SUMMARY | 2024-10-10 07:44 | XMS_ITS | Clinical Summary ---
Author Organization [facility] Virtual Care Address [address] [place] [address] Phone Care Team Providers Care Lime Kiln Operator Name Role Phone Jorge A Carlton MD Primary Care Provider [phone] Kalin Sow MD Unavailable [phone] Fred Nichols MD Unavailable [phone] Audra Gilliam MD Unavailable [phone] Allergies No known active allergies Medications levothyroxine [...] (06/08/2019): Added automatically from request for surgery [id number] Cubital tunnel syndrome on left 06/08/2019 Overview (06/08/2019): Added automatically from request for surgery [id number] Right inguinal hernia 12/13/2015 Overview (07/14/2016): Right [...] drink = 0.6 oz pur e alcohol) [facility] Utilities Answer Date Recorded In the [...] often do you attend chur ch or zoroastrianism services? Never 03/20/2023 Do you belong to any clubs o r organizations such as confucianism groups, unions, fraternal or athletic groups, or [...] place to sleep or slept in a senior care (including now)? 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 Gender Identity Not on file Sexual Orientation [...] Tdap) 06/20/2006 7 Depression Screening 08/16/2020 08/17/2019 Fall Risk Assessment 07/14/2024 07/15/2023, 03/21/20 23 Influenza Vaccine (Season Ended) 2024 02/17/2019, 11/29/2016, 02/09/2016, Additional history exists Pneumococcal vaccine 65+ Completed 018, 01/24/2015, 04/10/2004 Medical Devices Implanted Type Area Attenuator Device Identifier Shelf Expiration Date Model / Serial / Lot [employer] Jorje Advanix Naviflex 8.5fr 7cm Rapid Exchange Preload Taper Tip [id number] - [id number] Implanted:Qty: 1 on 03/20/2023 by Audra Gilliam MD at [facility] Stent [employer] Jorje 05/02/2024 [id number] / / [id number] Pacemaker Right: Chest [place] [address] AETNA AETNA SENIOR SUPPLEMENT MEDICARE AETNA SENIOR SUPPLEMENT AETNA MEDICARE AET SENIOR SUPPLEMENT MEDICARE [place] [address] Advance Directives For more information, please contact: [phone] * Full Code (Latest Code Status on [...] 12:39 PM 08/19/2019 7:36 PM Care Teams Lime Kiln Operator Relationship Specialty Start Date End Date Jorge A Carlton MD PCP - General 01/03/16 Kalin Sow MD Audit Consultant Transplant 06/05/19 Fred Nichols MD [address] [place] [address] DR [address] [facility] [address] [place] [address] Surgeon Orthopedic Surgery 08/19/19 Audra Gilliam MD [address] [place] [address] [address] [place] [address] Consulting Physician Gastroenterology 03/21/23
[2024-10-10 08:04] LABS: Hematocrit 39.8 % (37.0-46.0); Hemoglobin 13.8 g/dL (12.4-15.3); Mean Corpuscular HGB Conc 34.7 g/dL (32-36); Mean Corpuscular Hemoglobin 31.4 pg (27.0-31.0); Mean Corpuscular Volume 90.7 fL (78.0-102.0); Platelet Count Result 244 K/mm3 (150-420); Red Blood Count 4.39 M/mm3 (4.70-6.10); White Blood Count 7.6 K/mm3 (4.8-10.8)
[2024-10-10 08:31] LABS: Add Urine Microscopic? YES; Appearance Urine Clear (Clear); Glucose Urine UA Negative (Negative); Leukocyte Esterase Ur Negative (Negative); Nitrate Urine Negative (Negative); Specific Grav Ur 1.020 (1.010-1.020)
[2024-10-10 09:09] LABS: Alanine Aminotransferase 20 U/L (6-50); Albumin Level 3.6 g/dL (3.5-5.1); Alkaline Phosphatase 62 U/L (38-126); Anion Gap 3 mmol/L (4-12); Aspartate Amino Transferase 26 U/L (17-59); Bilirubin,Total 1.1 mg/dL (0.2-1.3); Blood Urea Nitrogen 19 mg/dL (9-20); CRP < 0.5 mg/dL (<1.0); Calcium 8.8 mg/dL (8.4-10.2); Carbon Dioxide 27 mmol/L (22-30); Chloride 110 mmol/L (98-107); Cholesterol 160 mg/dL (0-200); Estimated Glomerular Filt Rate 58; Glucose 141 mg/dL (65-110); HDL Direct 57 mg/dL; Osmolality Calculated 294 mOsm/kg (285-295); Potassium 4.2 mmol/L (3.4-5.0); Sodium 140 mmol/L (137-145); Total Protein 6.2 g/dL (6.3-8.2); Triglycerides 80 mg/dL (<150)
[2024-10-10 09:37] LABS: Prostate Specific Antigen 0.7 ng/mL (< OR = 4.0); Thyroid Stimulating Hormone 0.260 uIU/mL (0.465-4.680)
[2024-10-11 07:14] LABS: Immunoglobulin A 271 mg/dL (70-320); Immunoglobulin G 1051 mg/dL (600-1540); Immunoglobulin M 58 mg/dL (50-300)
[2024-10-12 11:50] LABS: Hemoglobin A1C 5.2 % (<5.7)
== END 2024-10-10 07:42 | disposition home or self-care (01) ==
PROVIDERS: PCP Internal Medicine; Visit Provider Internal Medicine
DX: E78.5 Hyperlipidemia, unspecified (principal); E03.9 Hypothyroidism, unspecified; J18.8 Other pneumonia, unspecified organism; M35.3 Polymyalgia rheumatica; R73.09 Other abnormal glucose; Z12.5 Encounter for screening for malignant neoplasm of prostate
CPT/HCPCS: 36415; 71046; 80053; 80061; 81001; 82784; 83036; 84153; 84443; 85027; 86140; G0103

== ENCOUNTER 2024-10-20 13:46 | Outpatient (CLI) | payer MEDICARE, SELFPAY ==
--- NOTE | ~2024-10-20 | CT_ITS ---
Clinical Indication: Cough CT Scan of the Chest with Contrast: Technique: Contiguous sections were acquired throughout the chest after intravenous administration of 75 cc of Omnipaque 350. Dose reduction technique was used on this scan by utilizing automated exposu re control and iterative reconstruction technique. The dose-length product (DLP) was 168.67 mGy-cm. Findings: 1.6 cm right hilar lymph node present. Subcarinal lymph node measures 1 cm in diameter. Minimal proba ble left hilar lymph nodes are present. Right paratracheal lymph node measures 13 mm in short axis. T here is no filling defect in the pulmonary arterial tree to suggest pulmonary embolus. There is no ev idence of aortic dissection or aneurysm. There is no evidence of pleural or pericardial effusion. There is focal bandlike consolidation the right upper lobe with focal calcification. There are additi onal scattered areas of nodularity about this region and the central to posterior right upper lobe. T here is an area of focal consolidation with a longer morphology and the right middle lobe, suggestive of chronic atelectasis or possible scarring. 4 mm left apical nodule present (axial image 17). Sever al scattered subcentimeter nodules are present in the left lung. Images through the upper abdomen reveal moderate hiatal hernia. Impression: Scattered areas of nodularity in the right upper lobe with additional subcentimeter nodules in the le ft lung and superior 7 right lower lobe. Findings could reflect infectious/inflammatory process. Foll ow-up CT in 1-3 months after interval therapy recommended. Additional bandlike area of consolidation in the right upper lobe with additional area of bandlike co nsolidation right middle lobe, which could reflect chronic scarring, atelectasis, possibly postproced ural change. These could also be reassessed at follow-up CT. Mild mediastinal lymphadenopathy, presumably reactive. Moderate hiatal hernia. Reviewed, dictated and finalized at location M. Impression: Scattered areas of nodularity in the right upper lobe with additional subcentim eter nodules in the left lung and superior 7 right lower lobe. Findings could r eflect infectious/inflammatory process. Follow-up CT in 1-3 months after interv al therapy recommended. Additional bandlike area of consolidation in the right upper lobe with addition al area of bandlike consolidation right middle lobe, which could reflect chroni c scarring, atelectasis, possibly postprocedural change. These could also be re assessed at follow-up CT. Mild mediastinal lymphadenopathy, presumably reactive. Moderate hiatal hernia.
--- OUTSIDE RECORDS SUMMARY | 2024-10-20 13:52 | XMS_ITS | Clinical Summary ---
Author Organization [facility] Address [address] [place] [address] Phone Care Team Providers Care Tank Riveter Name Role Phone Jorge A Carlton MD Primary Care Provider Allergies No known active allergies Medications levothyroxine [...] topic Insurance COMMERCIAL GENERIC MEDICARE Care Teams Tank Riveter Relationship Specialty Start Date End Date Jorge A Carlton MD [address] [place] [address] PCP - General Internal Medicine 07/04/17
--- OUTSIDE RECORDS SUMMARY | 2024-10-20 13:52 | XMS_ITS | Referral Summary ---
Author Organization [facility] Virtual Care Address [address] [place] [address] Phone Care Team Providers Care Budget Accountant Name Role Phone Jorge A Carlton MD Primary Care Provider [phone] Kalin Sow MD Unavailable [phone] Fred Nichols MD Unavailable [phone] Audra Gilliam MD Unavailable [phone] Allergies No known active allergies Medications levothyroxine [...] (06/08/2019): Added automatically from request for surgery [id number] Cubital tunnel syndrome on left 06/08/2019 Overview (06/08/2019): Added automatically from request for surgery [id number] Right inguinal hernia 12/13/2015 Overview (07/14/2016): Right [...] drink = 0.6 oz pur e alcohol) [facility] Utilities Answer Date Recorded In the past 12 months has e [employer], gas, oil, or water [employer] threatened to shut off services in your [...] often do you attend chur ch or episcopalian services? 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 Gender Identity Not on file Sexual Orientation [...] on file Medical Devices Implanted Type Area Nursing Educator Device Identifier Shelf Expiration Date Model / Serial / Lot [employer] Jorje Advanix Naviflex 8.5fr 7cm Rapid Exchange Preload Taper Tip [id number] - [id number] Implanted:Qty: 1 on 03/20/2023 by Audra Gilliam MD at [facility] [employer] Jorje 05/02/2024 [id number] / / [id number] Pacemaker Right: Chest Insurance MEDICARE TNA AETNA [facility] MEDICARE AETNA SENIOR SUPPLEMENT AETNA AETNA SENIOR SUPPLEMENT MEDICARE AETNA SENIOR SUPPLEMENT Advance Directives For more information, please contact: [phone] * Full Code (Latest Code Status on [...] 12:39 PM 08/19/2019 7:36 PM Care Teams Budget Accountant Relationship Specialty Start Date End Date Jorge A Carlton MD PCP - General 01/03/16 Kalin Sow MD Barnworker Groom Transplant 06/05/19 Fred Nichols MD [address] [place] [address] [address] [place] [address] Surgeon Orthopedic Surgery 08/19/19 Audra Gilliam MD [address] [place] [address] [address] [place] [address] Consulting Physician Gastroenterology 03/21/23
--- OUTSIDE RECORDS SUMMARY | 2024-10-20 13:52 | XMS_ITS | Clinical Summary ---
Author Organization [facility] Address [address] [place] [id number] Care Team Providers Care Toe Sewer Name Role Phone Jorge A Carlton MD Primary Care Provider [phone] Source Comments [facility],non-owned Affiliates and Associated Physician Practices is amultiple site organization consisting of ambulatory clinics and hospital sitesin [place], [place], [place] and [place]. This disclosure is being madepursuant to the Care Everywhere program and may not contain all information available regarding this patient. Last updated 17.[facility] [employer] Social History Tobacco Use Types Packs/Day Years [...] Insurance MEDICARE AET MEDICARE MEDICARE Care Teams Toe Sewer Relationship Specialty Start Date End Date Jorge A Carlton MD [address] [place] [address] PCP - General Internal Medicine 02/02/20
--- OUTSIDE RECORDS SUMMARY | 2024-10-20 13:52 | XMS_ITS | Clinical Summary ---
Author Organization [facility] Virtual Care Address [address] [place] [phone] Phone Care Team Providers Care Activities Specialist Name Role Phone Jorge A Carlton MD Primary Care Provider [phone] Kalin Sow MD Unavailable [phone] Fred Nichols MD Unavailable [phone] Audra Gilliam MD Unavailable [phone] Allergies No known active allergies Medications levothyroxine [...] (06/08/2019): Added automatically from request for surgery [id number] Cubital tunnel syndrome on left 06/08/2019 Overview (06/08/2019): Added automatically from request for surgery [id number] Right inguinal hernia 12/13/2015 Overview (07/14/2016): Right [...] drink = 0.6 oz pur e alcohol) [facility] Utilities Answer Date Recorded In the [...] often do you attend chur ch or orthodox services? 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 Gender Identity Not on file Sexual Orientation [...] 01/24/2015, 04/10/2004 Medical Devices Implanted Type Area Ornamental Ironworker Helper Device Identifier Shelf Expiration Date Model / Serial / Lot [employer] Jorje Advanix Naviflex 8.5fr 7cm Rapid Exchange Preload Taper Tip [id number] - [id number] Implanted:Qty: 1 on 03/20/2023 by Audra Gilliam MD at [employer] Jorje 05/02/2024 [id number] / / [id number] Pacemaker Right: Chest Insurance MEDICARE AETNA AETNA SENIOR SUPPLEMENT MEDICARE AETNA SENIOR SUPPLEMENT AETNA MEDICARE AET SENIOR SUPPLEMENT MEDICARE AETNA SENIOR SUPPLEMENT Advance Directives For more information, please contact: [phone] * Full Code (Latest Code Status on [...] 12:39 PM 08/19/2019 7:36 PM Care Teams Activities Specialist Relationship Specialty Start Date End Date Jorge A Carlton MD PCP - General 01/03/16 Kalin Sow MD Ecological Modeler Transplant 06/05/19 Fred Nichols MD [address] [place] [address] DR DE LA CRUZ B [facility] [address] [place] [address] Surgeon Orthopedic Surgery 08/19/19 Audra Gilliam MD [address] [place] [address] DR VICKERS [address] [place] [address] Consulting Physician Gastroenterology 03/21/23
== END 2024-10-20 13:47 | disposition home or self-care (01) ==
PROVIDERS: PCP Internal Medicine; Visit Provider Internal Medicine
DX: R05.9 Cough, unspecified (principal); J18.8 Other pneumonia, unspecified organism; R91.8 Other nonspecific abnormal finding of lung field; R59.0 Localized enlarged lymph nodes; K44.9 Diaphragmatic hernia without obstruction or gangrene
CPT/HCPCS: 71260; Q9967

== ENCOUNTER 2024-11-25 12:43 | Outpatient (CLI) | payer MEDICARE, SELFPAY ==
--- OUTSIDE RECORDS SUMMARY | 2024-11-25 12:50 | XMS_ITS | Clinical Summary ---
Author Organization [facility] Address [address] [place] [address] Phone Care Team Providers Care Room Service Food Service Attendant Name Role Phone Jorge A Carlton MD Primary Care Provider [phone] Allergies No known active allergies Medications levothyroxine [...] topic Insurance COMMERCIAL GENERIC MEDICARE Care Teams Room Service Food Service Attendant Relationship Specialty Start Date End Date Jorge A Carlton MD [address] [place] [address] PCP - General Internal Medicine 07/04/17
--- OUTSIDE RECORDS SUMMARY | 2024-11-25 12:50 | XMS_ITS | Clinical Summary ---
Author Organization [facility] Virtual Care Address [address] [place] [phone] Phone Care Team Providers Care Birth Certificate Clerk Name Role Phone Jorge A Carlton MD Primary Care Provider [phone] Kalin Sow MD Unavailable Fred Nichols MD Unavailable [phone] Audra Gilliam MD Unavailable [phone] Allergies No known active allergies Medications levothyroxine [...] (06/08/2019): Added automatically from request for surgery [id number] Cubital tunnel syndrome on left 06/08/2019 Overview (06/08/2019): Added automatically from request for surgery [id number] Right inguinal hernia 12/13/2015 Overview (07/14/2016): Right [...] drink = 0.6 oz pur e alcohol) [facility] Utilities Answer Date Recorded In the past 12 months has e electric, gas, oil, or water [employer] threatened to shut off services in your home? No 03/20/2023 Social Connection and Isolation Panel Answer Date Recorded In a typical week, how many times do you talk on the phone with family, friends, or neighbors? More than three times a week 03/20/2023 How often do you get togethe r with friends or relatives? More than three times a week 03/20/2023 How often do you attend [facility] ch or restorationist services? Never 03/20/2023 Do you belong to any clubs o r organizations such as scientology groups, unions, fraternal or athletic groups, or [...] place to sleep or slept in a residential (including now)? 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 Gender Identity Not on file Sexual Orientation [...] Assessment 07/14/2024 07/15/2023, 03/21/20 23 Influenza Vaccine (#1) 2024 9, 11/29/2016, 02/09/2016, Additional history exists Pneumococcal vaccine 65+ Completed 018, 01/24/2015, 04/10/2004 Medical Devices Implanted Type Area Yoker Machine Operator Device Identifier Shelf Expiration Date Model / Serial / Lot [place] [employer] Jorje Advanix Naviflex 8.5fr 7cm Rapid Exchange Preload Taper Tip [id number] - [id number] Implanted:Qty: 1 on 03/20/2023 by Audra Gilliam MD at [facility] Stent [place] [employer] Jorje 05/02/2024 [id number] / / [id number] Pacemaker Right: [place] [address] AETNA AETNA SENIOR SUPPLEMENT MEDICARE AETNA SENIOR SUPPLEMENT AETNA [facility] [place] [address] [place] [address] Advance Directives For more information, please contact: [phone] * Full Code (Latest Code Status on [...] 12:39 PM 08/19/2019 7:36 PM Care Teams Birth Certificate Clerk Relationship Specialty Start Date End Date Jorge A Carlton MD PCP - General 01/03/16 Kalin Sow MD Field Interviewer Transplant 06/05/19 Fred Nichols MD [address] [place] [address] DR DE LA CRUZ B [address] [address] Surgeon Orthopedic Surgery 08/19/19 Audra Gilliam MD [address] [place] [address] DR VICKERS [address] [place] [address] Consulting Physician Gastroenterology 03/21/23
--- OUTSIDE RECORDS SUMMARY | 2024-11-25 12:50 | XMS_ITS | Clinical Summary ---
Author Organization [facility] Address [address] [place] [address] Care Team Providers Care It Field Technician Name Role Phone Jorge A Carlton MD Primary Care Provider [phone] Source Comments [facility],non-owned Affiliates and Associated Physician Practices is amultiple site organization consisting of ambulatory clinics and hospital sitesin [place], [place], [place] and [place]. This disclosure is being madepursuant to the Care Everywhere program and may not contain all information available regarding this patient. Last updated 17.[facility]JP Social History Tobacco Use Types Packs/Day Years [...] Insurance MEDICARE AET MEDICARE MEDICARE Care Teams It Field Technician Relationship Specialty Start Date End Date Jorge A Carlton MD [address] [place] [address] PCP - General Internal Medicine 02/02/20
== END 2024-11-25 12:44 | disposition home or self-care (01) ==
LOC: CHSCARD 12:47
PROVIDERS: PCP Internal Medicine; Visit Provider Internal Medicine
DX: R05.9 Cough, unspecified (principal); J18.8 Other pneumonia, unspecified organism; R94.2 Abnormal results of pulmonary function studies
CPT/HCPCS: 94060; 94726; 94729

== ENCOUNTER 2024-12-22 10:23 | Outpatient (CLI) | payer MEDICARE, SELFPAY ==
[2024-12-22 11:28] LABS: Alanine Aminotransferase 23 U/L (6-50); Albumin Level 3.9 g/dL (3.5-5.1); Alkaline Phosphatase 61 U/L (38-126); Anion Gap 10 mmol/L (4-12); Aspartate Amino Transferase 29 U/L (17-59); Bilirubin,Total 1.2 mg/dL (0.2-1.3); Blood Urea Nitrogen 18 mg/dL (9-20); Calcium 9.4 mg/dL (8.4-10.2); Carbon Dioxide 25 mmol/L (22-30); Chloride 108 mmol/L (98-107); Cholesterol 177 mg/dL (0-200); Estimated Glomerular Filt Rate > 60; Glucose 148 mg/dL (65-110); HDL Direct 63 mg/dL; Magnesium 2.1 mg/dL (1.6-2.3); Osmolality Calculated 300 mOsm/kg (285-295); Potassium 4.0 mmol/L (3.4-5.0); Sodium 143 mmol/L (137-145); Total Protein 6.9 g/dL (6.3-8.2); Triglycerides 114 mg/dL (<150)
--- OUTSIDE RECORDS SUMMARY | 2024-12-22 12:11 | XMS_ITS | Clinical Summary ---
Author Organization [facility] Address [address] [place] [address] Care Team Providers Care Ios Architect Name Role Phone Jorge A Carlton MD Primary Care Provider [phone] Source Comments [facility],non-owned Affiliates and Associated Physician Practices is amultiple site organization consisting of ambulatory clinics and hospital sitesin [place], [place], [place] and [place]. This disclosure is being madepursuant to the Care Everywhere program and may not contain all information available regarding this patient. Last updated 17.[facility] [employer] Social History Tobacco Use Types Packs/Day Years [...] yrs (1 - 1-dose 75+ series) 07/27/2014 DEPRESSION SCREENING 04/08/2024 COVID-19 VACCINE ( - 2023-2 5 season) 2024 INFLUENZA VACCINE (#1) 2024 HEPATITIS B VACCINE [...] Insurance MEDICARE AET MEDICARE MEDICARE Care Teams Ios Architect Relationship Specialty Start Date End Date Jorge A Carlton MD [address] [place] [address] PCP - General Internal Medicine 02/02/20
--- OUTSIDE RECORDS SUMMARY | 2024-12-22 12:11 | XMS_ITS | Clinical Summary ---
Author Organization [facility] Address [address] [place] [address] Phone Care Team Providers Care Director Of Rehabilitation And Wellness Name Role Phone Jorge A Carlton MD Primary Care Provider [phone] Allergies No known active allergies Medications levothyroxine [...] topic Insurance COMMERCIAL GENERIC MEDICARE Care Teams Director Of Rehabilitation And Wellness Relationship Specialty Start Date End Date Jorge A Carlton MD [address] [place] [address] PCP - General Internal Medicine 07/04/17
--- OUTSIDE RECORDS SUMMARY | 2024-12-22 12:11 | XMS_ITS | Clinical Summary ---
Author Organization [facility] Virtual Care Address [address] [place] [phone] Phone Care Team Providers Care Bus And Sys Integration Senior Manager Name Role Phone Jorge A Carlton MD Primary Care Provider [phone] Kalin Sow MD Unavailable [phone] Fred Nichols MD Unavailable [phone] Audra Gilliam MD Unavailable [phone] Allergies No known active allergies Medications levothyroxine [...] (06/08/2019): Added automatically from request for surgery [id number] Cubital tunnel syndrome on left 06/08/2019 Overview (06/08/2019): Added automatically from request for surgery [id number] Right inguinal hernia 12/13/2015 Overview (07/14/2016): Right [...] drink = 0.6 oz pur e alcohol) [facility] Utilities Answer Date Recorded In the past 12 months has e electric, gas, oil, or water [employer] threatened to shut off services in your [...] week 03/20/2023 How often do you attend [facility] ch or lutheran services? Never 03/20/2023 Do you belong to any clubs o r organizations such as latter day groups, unions, fraternal or athletic groups, or [...] place to sleep or slept in a fpc (including now)? 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 Gender Identity Not on file Sexual Orientation [...] 01/24/2015, 04/10/2004 Medical Devices Implanted Type Area Wood Tank Builder Device Identifier Shelf Expiration Date Model / Serial / Lot [place] [employer] Jorje Advanix Naviflex 8.5fr 7cm Rapid Exchange Preload Taper Tip [id number] - [id number] Implanted:Qty: 1 on 03/20/2023 by Audra Gilliam MD at [facility] Stent [place] [employer] Jorje 05/02/2024 [id number] / / [id number] Pacemaker Right: Chest [place] [address] AETNA AETNA SENIOR SUPPLEMENT MEDICARE AETNA SENIOR SUPPLEMENT AETNA [facility] [place] [place] [address] [place] [address] Advance Directives For more information, please contact: [phone] * Full Code (Latest Code Status on [...] 12:39 PM 08/19/2019 7:36 PM Care Teams Bus And Sys Integration Senior Manager Relationship Specialty Start Date End Date Jorge A Carlton MD PCP - General 01/03/16 Kalin Sow MD Parts Department Manager Transplant 06/05/19 Fred Nichols MD [address] [place] [address] DR DE LA CRUZ B [address] [address] Surgeon Orthopedic Surgery 08/19/19 Audra Gilliam MD [address] [place] [address] DR VICKERS [address] [place] [address] Consulting Physician Gastroenterology 03/21/23
== END 2024-12-22 10:24 | disposition home or self-care (01) ==
LOC: CHSLAB 10:26
PROVIDERS: PCP Internal Medicine; Visit Provider Internal Medicine Cardiovascular Disease
DX: I10 Essential (primary) hypertension (principal); I34.0 Nonrheumatic mitral (valve) insufficiency; Z95.0 Presence of cardiac pacemaker
CPT/HCPCS: 36415; 80053; 80061; 83735

== ENCOUNTER 2024-12-29 11:41 | Outpatient (CLI) | payer MEDICARE, SELFPAY ==
--- OUTSIDE RECORDS SUMMARY | 2024-12-29 12:20 | XMS_ITS | Clinical Summary ---
Author Organization [facility] Address [address] [place] [address] Care Team Providers Care Electrical Unit Rebuilder Name Role Phone Jorge A Carlton MD Primary Care Provider Source Comments [facility],non-owned Affiliates and Associated Physician Practices is amultiple site organization consisting of ambulatory clinics and hospital sitesin [place], [place], [place] and [place]. This disclosure is being madepursuant to the Care Everywhere program and may not contain all information available regarding this patient. Last updated 17.[facility] Social History Tobacco Use Types Packs/Day Years [...] Insurance MEDICARE AET MEDICARE MEDICARE Care Teams Electrical Unit Rebuilder Relationship Specialty Start Date End Date Jorge A Carlton MD [address] [place] [address] PCP - General Internal Medicine 02/02/20
--- OUTSIDE RECORDS SUMMARY | 2024-12-29 12:21 | XMS_ITS | Clinical Summary ---
Author Organization [facility] Address [address] [place] [address] Phone Care Team Providers Care Dba Manager Name Role Phone Jorge A Carlton MD Primary Care Provider [phone] Allergies No known active allergies Medications levothyroxine [...] topic Insurance COMMERCIAL GENERIC MEDICARE Care Teams Dba Manager Relationship Specialty Start Date End Date Jorge A Carlton MD [address] [place] [address] PCP - General Internal Medicine 07/04/17
--- OUTSIDE RECORDS SUMMARY | 2024-12-29 12:21 | XMS_ITS | Clinical Summary ---
Author Organization [facility] Virtual Care Address [address] [place] [phone] Phone Care Team Providers Care Video Tape Duplicator Name Role Phone Jorge A Carlton MD Primary Care Provider [phone] Kalin Sow MD Unavailable [phone] Fred Nichols MD Unavailable [phone] Audra Gilliam MD Unavailable [phone] Allergies No known active allergies Medications levothyroxine [...] (06/08/2019): Added automatically from request for surgery [id number] Cubital tunnel syndrome on left 06/08/2019 Overview (06/08/2019): Added automatically from request for surgery [id number] Right inguinal hernia 12/13/2015 Overview (07/14/2016): Right [...] drink = 0.6 oz pur e alcohol) [facility] Utilities Answer Date Recorded In the past 12 months has e electric, gas, oil, or water [employer] threatened to shut off services in your [...] week 03/20/2023 How often do you attend [facility] ch or gnosticist services? Never 03/20/2023 Do you belong to any clubs o r organizations such as mu-ism groups, unions, fraternal or athletic groups, or [...] place to sleep or slept in a chcf (including now)? 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 Gender Identity Not on file Sexual Orientation [...] 01/24/2015, 04/10/2004 Medical Devices Implanted Type Area Tonger Device Identifier Shelf Expiration Date Model / Serial / Lot [place] [employer] Jorje Advanix Naviflex 8.5fr 7cm Rapid Exchange Preload Taper Tip [id number] - [id number] Implanted:Qty: 1 on 03/20/2023 by Audra Gilliam MD at [facility] Stent [place] [employer] Jorje 05/02/2024 [id number] / / [id number] Pacemaker Right: Chest Insurance MEDICARE AETNA AETNA SENIOR SUPPLEMENT MEDICARE AETNA SENIOR SUPPLEMENT AETNA [facility] SENIOR SUPPLEMENT AETNA SENIOR SUPPLEMENT Advance Directives For more information, please contact: [phone] * Full Code (Latest Code Status on [...] 12:39 PM 08/19/2019 7:36 PM Care Teams Video Tape Duplicator Relationship Specialty Start Date End Date Jorge A Carlton MD PCP - General 01/03/16 Kalin Sow MD Wireless Communications Engineer Transplant 06/05/19 Fred Nichols MD [address] [place] [address] DR DE LA CRUZ B [address] [address] Surgeon Orthopedic Surgery 08/19/19 Audra Gilliam MD [address] [place] [address] DR VICKERS [address] [place] [address] Consulting Physician Gastroenterology 03/21/23
[2024-12-29 12:22] LABS: Alanine Aminotransferase 21 U/L (6-50); Albumin Level 4.0 g/dL (3.5-5.1); Alkaline Phosphatase 61 U/L (38-126); Anion Gap 9 mmol/L (4-12); Aspartate Amino Transferase 29 U/L (17-59); Bilirubin,Total 1.0 mg/dL (0.2-1.3); Blood Urea Nitrogen 16 mg/dL (9-20); Calcium 9.5 mg/dL (8.4-10.2); Carbon Dioxide 25 mmol/L (22-30); Chloride 108 mmol/L (98-107); Estimated Glomerular Filt Rate > 60; Glucose 106 mg/dL (65-110); Osmolality Calculated 295 mOsm/kg (285-295); Potassium 4.6 mmol/L (3.4-5.0); Sodium 142 mmol/L (137-145); Total Protein 7.3 g/dL (6.3-8.2)
[2024-12-29 12:53] LABS: Prostate Specific Antigen 0.8 ng/mL (< OR = 4.0)
== END 2024-12-29 11:42 ==
LOC: CHSLAB 11:45
PROVIDERS: PCP Internal Medicine
DX: N40.1 Benign prostatic hyperplasia with lower urinary tract symptoms (principal); N42.9 Disorder of prostate, unspecified
CPT/HCPCS: 36415; 80053; 84153